=== PATIENT | female | born 1930 | race Caucasian/White ===

== ENCOUNTER 2017-11-12 19:31 | Inpatient (IN) | payer MEDICARE, BC ==
[~2017-11-12] VITALS: Ht 160 cm; Wt 57.2 kg
[~2017-11-12 19:31] MED LIST: IRON325 M1 PO; LEVAQUIN500 MG PO; LEVOTHYROXINE50 MCG PO; METOPROLOL TART50 MG PO; PANTOPRAZOLE SO40 MG PO; SENSIPAR30 MG PO; Z.0.FUROSEMIDE40 MG PO; Z.0.LEVOTHYROXINE88 PO; Z.0.METOPROLOL TART5 PO; Z.0.NIFEDICAL XL60 M PO; Z.0.SIMVASTATIN20 MG PO; ZEMPLAR PO; ZYRTEC10 MG PO; [UNRECOGNIZED DRUG - CODE] SQ; [UNRECOGNIZED DRUG - OTHER]; [UNRECOGNIZED DRUG - OTHER] IV; [UNRECOGNIZED DRUG - OTHER] PO; vitamin d PO
--- OUTSIDE RECORDS SUMMARY | 2017-11-12 19:34 | XMS REPORT ---
Author Author [facility] Address Unknown Phone Unavailable Care Team Providers Care Insurance Professional Name Role Phone EDOUARD GALLEGOS Unavailable Unavailable Problems This patient has no known problems. Allergies, Adverse Reactions, Alerts This patient has no known allergies or adverse reactions. Medications This patient has no known medications. Results Test Description Test Time Test Comments Text Results Atomic Results Result Comments CT BRAIN WO [place] [address] Patient Name: SHANTANU NAVARRO MR #: [id number] : 1930 Age/Sex: 86/F Req #: [id number] Adm Physician: Ordered by: QUINN LAURA CATERING SERVER Report #: [id number] Location: ER Room/Bed: Procedure: [id number] CT/CT BRAIN WO Exam Date: 04/27/17 Exam Time: 1899 REPORT STATUS: Signed History:Fall Comparison studies:None Technique: Axial images were obtained from the skull base to the vertex. Coronal and sagittal images reconstructed from the axial data. Intravenous contrast: None Findings: Scalp/skull: Left parietal scalp hematoma. No fracture. Extra-axial spaces: No masses. No fluid collections. Brain sulci: Mildly prominent. Ventricles: Mild compensatory dilatation. No hydrocephalus. Parenchyma: Few scattered hypodensities in the supratentorial white matter are small vessel ischemic changes. No masses, hemorrhage, acute or chronic cortical vascular insults. Sellar/suprasellar region: No abnormalities. Craniocervical junction: Patent foramen magnum. No Chiari one malformation. Incidental findings: Atherosclerotic calcifications in the carotid siphons . Impression: No acute intracranial abnormalities. Left parietal scalp hematoma. No fracture Chronic findings: 1. Mild generalized volume loss. 2. Mild supratentorial white matter small vessel ischemic changes. Signed by: DR Akshat Edouard M.D. on 04/27/2017 7:33 PM Dictated By: AKSHAT EDOUARD MD 32 Transcribed By: SIOMARA on 04/27/171932 COPY TO: QUINN LAURA NP CT CERVICAL SPINE WO [place] [address] Patient Name: SHANTANU NAVARRO MR #: [id number] : 1930 Age/Sex: 86/F Req # : [id number] Adm Physician: Ordered by: QUINN LAURA NP Report #: [id number] Location: ER Room/Bed: Procedure: [id number] CT/CT CERVICAL SPINE WO Exam Date: 04/27/17 Exam Time: 1899 REPORT STATUS: Signed History: Fall Comparison studies: None Technique: Axial images were obtained through the cervical region.. Coronal and sagittal images reconstructed from the axial data.. Intravenous contrast: None Findings: Fractures: None. Soft tissues: No gross abnormalities. Atlantoaxial articulation: Mild degenerative changes. No acute abnormality. Alignment: Normal lordosis. No scoliosis. Cervicomedullary junction: No abnormalities. The foramen magnum is patent. Vertebrae: No infection or neoplasm. Degenerative changes: Mild facet hypertrophy with mild foraminal narrowing of the mid cervical spine. Patent canal. Atherosclerotic changes of the carotid bulbs. Metallic device in the right lateral neck soft tissues. IMPRESSION: 1. No acute cervical spine abnormalities. Mild degenerative changes. 2. Cannot exclude ligament, spinal cord and or vascular abnormalities on the basis of this examination. Signed by: DR Akshat Edouard M.D. on 04/27/2017 7: 39 PM Dictated By: AKSHAT VIDALES MD 38 Transcribed By: SIOMARA on 04/27/171938 COPY TO: QUINN LAURA NP
[2017-11-12 19:54] LABS: BASOPHILS % 0.3 % (0.0-1.0); EOSINOPHILS % 0.3 % (0.0-6.0); HEMOGLOBIN 11.4 g/dL (12.0-16.0); LYMPHOCYTES # (AUTO) 0.3 (1.0-3.2); LYMPHOCYTES % 3.2 % (18.0-39.1); MEAN CORPUSCULAR HGB CONC 32.6 g/dL (31-35); MEAN CORPUSCULAR VOLUME 98.3 fL (81-99); MONOCYTES # (AUTO) 0.7 (0.2-0.8); MONOCYTES % 7.6 % (4.4-11.3); NEUTROPHILS # (AUTO) 8.4 (2.1-6.9); NEUTROPHILS % 88.3 % (38.7-80.0); PLATELET COUNT 142 x10e3/uL (140-360); RED BLOOD COUNT 3.56 x10e6/uL (3.6-5.1); RED CELL DISTRIBUTION WIDTH 13.2 % (11.7-14.4)
[2017-11-12] MEDS ORDERED: VANCOMYCIN 1GM/NS 250 ML 250 ML IV STA (19:56)
[2017-11-12 19:59] LABS: BILIRUBIN,URINE NEGATIVE (NEGATIVE); CLARITY,URINE HAZY (CLEAR); COLOR,URINE YELLOW (YELLOW); KETONES,URINE NEGATIVE (NEGATIVE); LEUKOCYTE ESTERASE ,URINE NEGATIVE (NEGATIVE); NITRITE,URINE NEGATIVE (NEGATIVE); URINE UROBILINOGEN 0.2 mg/dL (0.2 - 1)
[2017-11-12] MEDS ORDERED: CEFEPIME HCL 2 GM VIAL IV SCH (20:00)
[2017-11-12 20:10] LABS: PROTEIN,URINE DIPSTICK 2+ (NEGATIVE)
[2017-11-12 20:13] LABS: ALBUMIN 3.3 g/dL (3.5-5.0); ALBUMIN/GLOBULIN RATIO 1.1 (0.8-2.0); ANION GAP 17.2 mmol/L (8-16); CALCIUM 9.2 mg/dL (8.4-10.2); CREATININE, SERUM 3.79 mg/dL (0.57-1.11); POTASSIUM 4.2 mmol/L (3.5-5.1)
[2017-11-12 20:17] LABS: BACTERIA,URINE FEW /HPF; EPITHELIAL CELLS,URINE FEW /LPF; RBC,URINE 0-5 /HPF (0-5); WBC,URINE (MAN) 0-5 /HPF (0-5)
[2017-11-12 20:19] LABS: CREATINE KINASE MB 1.7 ng/mL (0-5.0)
--- NOTE | 2017-11-12 20:29 | Diagnostic Imaging Report ---
EXAM: CHEST 2 VIEWS, PA and lateral INDICATION: Fever, generalized weakness COMPARISON: AP view the chest September 19, 2015 FINDINGS: LINES/TUBES: None LUNGS: Bibasilar scarring. PLEURA: No effusions or pneumothorax. HEART AND MEDIASTINUM: Stable appearance. BONES AND SOFT TISSUES: No acute findings. IMPRESSION: No acute thoracic abnormality. Signed by: Dr. Sandy Ramsey M.D. on 11/12/2017 8:25 PM
[2017-11-12 20:32] LABS: INR 1.03; PARTIAL THROMBOPLASTIN TIME 26.9 seconds (23.8-35.5); PROTHROMBIN TIME 12.7 seconds (11.9-14.5)
[2017-11-12] MEDS ORDERED: ONDANSETRON HCL INJ 2 MG/ML VIAL IV PRN (21:00)
[2017-11-12] MEDS ORDERED: ACETAMINOPHEN 325 MG TAB PO PRN (21:00)
[2017-11-12] MEDS ORDERED: FAMOTIDINE 20 MG/2 ML VIAL IV SCH (21:00)
[2017-11-13] VITALS (8 sets, daily range): BP systolic 88–193; BP diastolic 47–57
[2017-11-13 07:10] LABS: BASOPHILS % 0.4 % (0.0-1.0); HEMATOCRIT 33.7 % (34.2-44.1); HEMOGLOBIN 10.8 g/dL (12.0-16.0); LYMPHOCYTES # (AUTO) 0.5 (1.0-3.2); LYMPHOCYTES % 4.5 % (18.0-39.1); MEAN CORPUSCULAR HEMOGLOBIN 31.9 pg (28-32); MEAN CORPUSCULAR VOLUME 99.4 fL (81-99); MONOCYTES # (AUTO) 0.8 (0.2-0.8); MONOCYTES % 7.4 % (4.4-11.3); NEUTROPHILS # (AUTO) 9.7 (2.1-6.9); NEUTROPHILS % 86.5 % (38.7-80.0); PLATELET COUNT 135 x10e3/uL (140-360); RED BLOOD COUNT 3.39 x10e6/uL (3.6-5.1); RED CELL DISTRIBUTION WIDTH 13.4 % (11.7-14.4)
[2017-11-13 07:35] LABS: CREATINE KINASE MB 1.3 ng/mL (0-5.0)
[2017-11-13 08:05] LABS: ALBUMIN 2.8 g/dL (3.5-5.0); ANION GAP 17.7 mmol/L (8-16); CALCIUM 9.1 mg/dL (8.4-10.2); CHOL/HDL RATIO 3.2 (3.0-3.6); CREATININE, SERUM 4.32 mg/dL (0.57-1.11); POTASSIUM 4.7 mmol/L (3.5-5.1)
[2017-11-13] MEDS ORDERED: SODIUM CHLORIDE 0.9% 1000ML 1,000 ML IV STA (08:48)
[2017-11-13] MEDS: CEFEPIME HCL 2 GM VIAL IV SCH (09:26)
[2017-11-13] MEDS: PANTOPRAZOLE SOD 40 MG TABEC PO SCH (09:26)
[2017-11-13] MEDS: FERROUS SULFATE 325 MG TAB PO SCH (09:26)
[2017-11-13] MEDS: CINACALCET 30 MG TAB PO SCH (09:26)
--- NOTE | 2017-11-13 09:32 | Consultation ---
DATE OF CONSULTATION: November 13, 2017 An 87-year-old female well known to our nephrology service. Dialyzes at [facility] on Monday, and Monday with Dr. Stanford, my associate. She has been admitted with fever. Denies any nausea, vomiting or shortness of breath at this point in time. 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 Currently awake, alert and laying supine. No apparent distress. Denies any fever this morning. Denies any shortness of breath. Labs show a white count 11.2, hemoglobin is 10.8. Chemistry shows potassium 4.7, creatinine 4.32. Calcium level 9.1. So far, her urine and blood cultures are negative. CURRENT MEDICATIONS 1. Vancomycin 1 g dose. 2. Cefepime 2 g q.12 h. which I am going to change to q.24 h. 3. She is on antiemetics. For dose schedule, please see MAR. ALLERGIES: PENICILLIN. SOCIAL HISTORY: Does not smoke or drink. Has a very supportive daughter. PHYSICAL EXAMINATION: GENERAL: She is currently awake, alert and sitting up in no apparent distress. Frail old lady with evidence of kyphosis, possibly has osteoporosis as well just by looking at her. VITALS: Blood pressure is 88/50, pulse rate 86, afebrile, oxygen saturation 94%. HEAD AND NECK: Corneae clear. Oral mucosa dry. LUNGS: Occasional rales, right base. Left relatively clear. HEART: S1 and S2 audible. Soft 2-3/6 ejection systolic murmur heard over the left sternal border. ABDOMEN: Otherwise soft and nontender. LOWER EXTREMITY EXAMINATION: No edema. IMPRESSION AND PLAN 1. Fever. 2. Elevated white count: Cultures pending. On empiric antibiotics. Cefepime dose adjusted. I will schedule dialysis. 3. Hypotensive: Will give her a liter of saline bolus. Please see orders. Job#: [id number]
--- NOTE | 2017-11-13 13:36 | History and Physical ---
HISTORY OF PRESENT ILLNESS: Ms. Cortez is an 87-year-old female that states she started having general malaise and fever the day before yesterday on November 11. She took her temperature, and it was 103 degrees Fahrenheit. She felt fatigued. She was brought to the emergency department where she was given Tylenol. Denies any further complaints on review of systems. PAST MEDICAL HISTORY 1. End-stage renal disease since 2012. 2. Hypertensive heart disease. 3. Gastroesophageal reflux disease. 4. Gastritis. 5. Esophageal stricture. 6. Anemia of chronic disease. 7. Secondary hyperparathyroidism. 8. Zenker's diverticulum with prior EGD and dilation. PAST SURGICAL HISTORY 1. Left forearm AV fistula. 2. Right coronary aneurysm repair in 1967. 3. The patient's daughter at the bedside states she had some sort of pouch in her esophagus and had surgery to repair that last year. SOCIAL HISTORY: She is a . She lives alone. She denies any history of smoking, any tobacco use, alcohol use or illicit drug use. FAMILY HISTORY: The patient states her mother and 3 siblings had Alzheimer's dementia. She is one of 10 children. She had 2 to 3 siblings with asthma. Primary care physician is Dr. Palma, and her server manager is Dr. Stanford. ALLERGIES: SHE IS ALLERGIC TO PENICILLIN. HOME MEDICATIONS: Include Protonix. REVIEW OF SYSTEMS GENERAL: She complains of fatigue and mild malaise. Denies any fever or chills currently. vertigo or loss of consciousness. She denies rash or pruritus. She denies any fever or chills currently. HEENT: Denies any visual complaints. No complaints of sore throat or trouble swallowing currently. CARDIOVASCULAR: Denies any chest pain or palpitations. PULMONARY: Denies shortness of breath, cough or phlegm. GASTROINTESTINAL: Denies nausea, vomiting, diarrhea or constipation. She states her last bowel movement was yesterday. GENITOURINARY: No complaints of dysuria or pyuria. No nocturia or urinary frequency. MUSCULOSKELETAL: She denies back pain or joint pains. ENDOCRINE: Negative for diabetes. HEMATOLOGY: Denies any bleeding or bruising. INFECTIOUS DISEASE: No known history of HIV or immunodeficiency. NEUROLOGIC: Denies any focal weakness, numbness, tingling or seizures. PHYSICAL EXAMINATION VITALS: Temperature 96.8. T-max 100.7. Heart rate 80. Blood pressure 88/50 with a MAP of 63. Respiratory rate 17. Oxygen saturation 96%. She weighs 139 pounds. BMI is 24.62. GENERAL: The patient is a well-nourished, well-developed female in no apparent distress. Lying supine in bed. Her daughter is at the bedside. HEENT: Pupils are equal, round and reactive to light. The extraocular movements are intact. Oropharynx is clear. NECK: Supple. No lymphadenopathy, thyromegaly or JVD noted. CARDIOVASCULAR: Regular rate and rhythm. No murmur appreciated. RESPIRATORY: Air entry bilaterally. She has fine expiratory crackles on the posterior left lower lobe, otherwise clear. ABDOMEN: Bowel sounds positive. Soft, nontender. BACK: No costovertebral angle tenderness. EXTREMITIES: No pitting edema. No signs or symptoms of DVT. Her left ankle and left foot are slightly larger than her right. The patient states her left foot tends to swell, which is normal for her. NEUROLOGIC: GCS is 15. Cranial nerves II through XII are intact. Alert and oriented x4. Nonfocal. LABORATORY DATA: On admission, WBC 9.57, hemoglobin 11.4, hematocrit 35.0, platelets 142. Neutrophils 88.3%. PT 12.7, INR 1.03, PTT 26.9. Sodium 141, potassium 4.2, chloride 100, CO2 28, anion gap 17.2. BUN 41, creatinine 3.79, GFR 11. Glucose 125. Calcium 9.2. Magnesium 1.8. Total bilirubin 0.5, AST 15, ALT 10, alkaline phosphatase 95. Creatine kinase 39, CK-MB 1.7, troponin I 0.042, total protein 6.3, albumin 3.3, and lactic acid 20.9. Urinalysis showed a pH of 8, specific gravity 1.015, protein 2+, negative nitrites, negative for leukocyte esterase. Influenza types A and B were negative. Group A strep screen was negative. Today, WBC is 11.25, hemoglobin 10.8, hematocrit 33.7, platelets 135. Sodium 140, potassium 4.7, chloride 99, CO2 28, BUN 48, creatinine 4.32. GFR 10. Anion gap 17.7. Glucose 92. Calcium 9.1. Total bilirubin 0.5, AST 15, ALT 10, alkaline phosphatase 76, total protein 5.5, albumin 2.8. Triglycerides 96, cholesterol 188, LDL 111, HDL 58. Upon admission, throat culture and 2 blood cultures were collected. Preliminary urine culture and sensitivity show no growth. Other culture results are pending. Chest x-ray was negative yesterday. No acute thoracic abnormality. Some bibasilar scarring. EKG completed yesterday showed sinus tachycardia with heart rate of 106. ASSESSMENT AND PLAN 1. Fever with leukocytosis. The patient has been placed on cefepime and vancomycin. One dose of vancomycin has been given, and cefepime dosage has been adjusted by nephrology to 2 g every morning. She is also on Tylenol. We will monitor the culture and sensitivity results and change antibiotics as needed. 2. End-stage renal disease on hemodialysis Monday, , Monday. Dr. Rene with nephrology has been consulted. Continue hemodialysis per nephrology recommendations. 3. Hypotension with an underlying history of hypertension. Patient has received 1 liter of normal saline IV as a bolus. Continue to monitor blood pressure. 4. Anemia secondary to chronic kidney disease. She is on ferrous sulfate. Continue this and monitor hemoglobin and hematocrit. 5. Secondary hyperparathyroidism. Continue cinacalcet. 6. Prophylaxis: Continue the patient's home medication Protonix. Total time 1 hour. Dictated by: Mars Waggoner NP Job#: [id number]
[2017-11-13 15:37] LABS: CREATINE KINASE MB 1.9 ng/mL (0-5.0)
[2017-11-13] MEDS ORDERED: VANCOMYCIN 1GM/NS 250 ML 250 ML IV ONE (19:00)
[2017-11-13] MEDS ORDERED: SODIUM CHLORIDE 0.9% 250ML 250 ML ONE (21:53)
[2017-11-14] VITALS (9 sets, daily range): BP systolic 104–141; BP diastolic 51–77
[2017-11-14 06:53] LABS: BASOPHILS % 0.5 % (0.0-1.0); EOSINOPHILS # (AUTO) 0.1 (0.0-0.4); EOSINOPHILS % 1.8 % (0.0-6.0); HEMATOCRIT 32.2 % (34.2-44.1); HEMOGLOBIN 10.2 g/dL (12.0-16.0); LYMPHOCYTES # (AUTO) 0.8 (1.0-3.2); MEAN CORPUSCULAR HEMOGLOBIN 32.1 pg (28-32); MEAN CORPUSCULAR HGB CONC 31.7 g/dL (31-35); MEAN CORPUSCULAR VOLUME 101.3 fL (81-99); MONOCYTES # (AUTO) 0.5 (0.2-0.8); MONOCYTES % 9.7 % (4.4-11.3); NEUTROPHILS % 72.6 % (38.7-80.0); PLATELET COUNT 115 x10e3/uL (140-360); RED BLOOD COUNT 3.18 x10e6/uL (3.6-5.1); RED CELL DISTRIBUTION WIDTH 13.5 % (11.7-14.4)
[2017-11-14 07:17] LABS: ALBUMIN 2.5 g/dL (3.5-5.0); ALBUMIN/GLOBULIN RATIO 0.9 (0.8-2.0); ANION GAP 18.1 mmol/L (8-16); CREATININE, SERUM 5.07 mg/dL (0.57-1.11); POTASSIUM 5.1 mmol/L (3.5-5.1)
[2017-11-14] MEDS ORDERED: PANTOPRAZOLE SOD 40 MG TABEC PO SCH (09:00)
[2017-11-14] MEDS: PANTOPRAZOLE SOD 40 MG TABEC PO SCH (09:30)
[2017-11-14] MEDS: FERROUS SULFATE 325 MG TAB PO SCH (10:13)
[2017-11-14] MEDS: CINACALCET 30 MG TAB PO SCH (10:13)
[2017-11-14] MEDS: CEFEPIME HCL 2 GM VIAL IV SCH (10:13)
[2017-11-14] MEDS: CHOLECALCIFEROL 1,000 UNIT TAB PO SCH (10:13)
[2017-11-14] MEDS ORDERED: SODIUM CHLORIDE 0.9% 1000ML 1,000 ML IV PRN (16:15)
[2017-11-14] MEDS: VANCOMYCIN 1GM/NS 250 ML 250 ML IV SCH (22:18)
[2017-11-15] VITALS (7 sets, daily range): BP systolic 116–160; BP diastolic 59–74
[2017-11-15 06:43] LABS: BASOPHILS % 0.5 % (0.0-1.0); EOSINOPHILS # (AUTO) 0.2 (0.0-0.4); EOSINOPHILS % 3.8 % (0.0-6.0); HEMATOCRIT 33.5 % (34.2-44.1); HEMOGLOBIN 10.7 g/dL (12.0-16.0); LYMPHOCYTES # (AUTO) 0.7 (1.0-3.2); LYMPHOCYTES % 15.7 % (18.0-39.1); MEAN CORPUSCULAR HEMOGLOBIN 31.8 pg (28-32); MEAN CORPUSCULAR HGB CONC 31.9 g/dL (31-35); MEAN CORPUSCULAR VOLUME 99.4 fL (81-99); MONOCYTES # (AUTO) 0.5 (0.2-0.8); MONOCYTES % 10.7 % (4.4-11.3); NEUTROPHILS # (AUTO) 2.9 (2.1-6.9); NEUTROPHILS % 69.1 % (38.7-80.0); PLATELET COUNT 109 x10e3/uL (140-360); RED BLOOD COUNT 3.37 x10e6/uL (3.6-5.1); RED CELL DISTRIBUTION WIDTH 13.4 % (11.7-14.4)
[2017-11-15 07:33] LABS: CREATININE, SERUM 2.68 mg/dL (0.57-1.11); MAGNESIUM 1.7 MG/DL (1.3-2.1); PHOSPHORUS 3.5 MG/DL (2.3-4.7)
[2017-11-15] MEDS: PANTOPRAZOLE SOD 40 MG TABEC PO SCH ×2 (09:29→09:43)
[2017-11-15] MEDS: FERROUS SULFATE 325 MG TAB PO SCH ×2 (09:29→09:43)
[2017-11-15] MEDS: CINACALCET 30 MG TAB PO SCH ×2 (09:30→09:43)
[2017-11-15] MEDS: CHOLECALCIFEROL 1,000 UNIT TAB PO SCH ×2 (09:30→09:43)
[2017-11-15] MEDS ORDERED: POLYETHYLENE GLYCOL 3350 17 GM PACK PO PRN (22:15)
[2017-11-16] VITALS (8 sets, daily range): BP systolic 119–153; BP diastolic 59–72
[2017-11-16] MEDS: FERROUS SULFATE 325 MG TAB PO SCH (08:12)
[2017-11-16] MEDS: PANTOPRAZOLE SOD 40 MG TABEC PO SCH (08:12)
[2017-11-16] MEDS: DOCUSATE SODIUM 100 MG CAP PO SCH ×2 (08:12→17:28)
[2017-11-16] MEDS: CHOLECALCIFEROL 1,000 UNIT TAB PO SCH (08:12)
[2017-11-16] MEDS: CINACALCET 30 MG TAB PO SCH (08:12)
[2017-11-16 09:00] LABS: BASOPHILS % 0.6 % (0.0-1.0); EOSINOPHILS # (AUTO) 0.2 (0.0-0.4); EOSINOPHILS % 4.7 % (0.0-6.0); HEMATOCRIT 34.9 % (34.2-44.1); HEMOGLOBIN 11.2 g/dL (12.0-16.0); LYMPHOCYTES # (AUTO) 0.8 (1.0-3.2); LYMPHOCYTES % 17.3 % (18.0-39.1); MEAN CORPUSCULAR HEMOGLOBIN 31.9 pg (28-32); MEAN CORPUSCULAR HGB CONC 32.1 g/dL (31-35); MEAN CORPUSCULAR VOLUME 99.4 fL (81-99); MONOCYTES # (AUTO) 0.5 (0.2-0.8); MONOCYTES % 10.9 % (4.4-11.3); NEUTROPHILS # (AUTO) 3.2 (2.1-6.9); NEUTROPHILS % 66.1 % (38.7-80.0); PLATELET COUNT 128 x10e3/uL (140-360); RED BLOOD COUNT 3.51 x10e6/uL (3.6-5.1); RED CELL DISTRIBUTION WIDTH 13.2 % (11.7-14.4)
[2017-11-16 09:20] LABS: ANION GAP 15.2 mmol/L (8-16); CALCIUM 9.3 mg/dL (8.4-10.2); CREATININE, SERUM 3.84 mg/dL (0.57-1.11); POTASSIUM 4.2 mmol/L (3.5-5.1)
[2017-11-16] MEDS ORDERED: HYDRALAZINE HCL 20 MG/ML VIAL IV PRN (09:30)
[2017-11-16] MEDS: VANCOMYCIN 1GM/NS 250 ML 250 ML IV SCH (17:28)
[2017-11-17] VITALS: BP 123/60
[2017-11-17 04:00] VITALS: BP 163/71
[2017-11-17 06:41] VITALS: BP 142/80
[2017-11-17 08:26] VITALS: BP 177/71
[2017-11-17] MEDS: FERROUS SULFATE 325 MG TAB PO SCH (09:30)
[2017-11-17] MEDS: CHOLECALCIFEROL 1,000 UNIT TAB PO SCH (09:30)
[2017-11-17] MEDS: DOCUSATE SODIUM 100 MG CAP PO SCH ×2 (09:30→17:22)
[2017-11-17] MEDS: CINACALCET 30 MG TAB PO SCH (09:30)
[2017-11-17 12:24] VITALS: BP 167/73
[2017-11-17] MEDS ORDERED: BISACODYL 10 MG SUPP PR PRN (14:45)
[2017-11-17] MEDS ORDERED: LACTULOSE SYRUP 20 GM/30 ML UDC PO PRN ×2 (14:45)
[2017-11-17] MEDS ORDERED: COLACE100 M1 PO (15:58)
[2017-11-17] MEDS ORDERED: ACETAMINOPHEN325 M1 PO (15:58)
[2017-11-17] MEDS ORDERED: VITAMIN D1000 UNI1 PO (15:58)
[2017-11-17] MEDS ORDERED: MIRALAX17 GM PO (15:58)
[2017-11-17] MEDS ORDERED: VITAMIN C500 M2 PO (15:59)
[2017-11-17 16:00] VITALS: BP 149/63
--- NOTE | 2017-11-17 17:36 | Discharge Summary ---
PERTINENT HISTORY AND PHYSICAL FINDINGS: The patient is an 87-year-old female who was admitted on 11/12/2017 stating that she had generalized malaise and fever 2 days prior to admission on November 11. She took her temperature and it was 103 degrees Fahrenheit. She felt fatigued. She was given Tylenol in the emergency room and started on cefepime and vancomycin. PAST MEDICAL HISTORY: End-stage renal disease since 2012, hypertensive heart disease, gastroesophageal reflux disease, gastritis, esophageal stricture, anemia of chronic disease secondary to hyperparathyroidism, Zenker's diverticulum with prior EGD and dilation. PAST SURGICAL HISTORY: Left forearm AV fistula, right coronary aneurysm repair in 1967. She had some sort of patch in her esophagus and had surgical repair to that last year. ADMITTING DIAGNOSES 1. Fever with leukocytosis. 2. End-stage renal disease on hemodialysis Monday, , Monday. 3. Hypotension with an underlying history of hypertension. 4. Anemia secondary to chronic kidney disease. 5. Secondary hyperparathyroidism. DISCHARGE DIAGNOSES 1. Fever with leukocytosis. 2. Gram-positive cocci bacteremia. 3. Systolic hypertension complicated by end-stage renal disease and on hemodialysis Monday, , Monday. 4. Hypomagnesemia. 5. Thrombocytopenia. 6. End-stage renal disease and on hemodialysis Monday, , Monday. 7. Anemia secondary to chronic kidney disease. 8. Secondary hyperparathyroidism. 9. Debility. 10. Constipation. On admission, her white blood cell count was 9.57, hemoglobin 11.4, hematocrit 35, platelets 142,000, 98.3% neutrophils. Overall electrolytes were within normal limits. Her creatinine was 3.79 and BUN 41 for a GFR of 11. Influenza types A and B were negative. Urinalysis showed negative nitrites, negative for leukocyte esterase. Group A Strept screen was negative. White blood cell count did increase to 11.25. Blood culture and sensitivity collected on November 12 x2 bottles positive for Staphylococcus aureus, and, therefore, further blood cultures were collected. Blood cultures sensitivity x2 on the , and , thus far have been negative for any growth. The case was discussed with Dr. Polanco. There are plans for a transesophageal echocardiogram if any of the additional culture and sensitivities had growth in order to rule out bacterial endocarditis. However, all of the cultures have come back negative. Thus, the patient can be discharged today with orders to case management to set up IV antibiotic administration of vancomycin 1 gram IV, plus dialysis thrice weekly on her dialysis days. I have put in an order for case management to set up home health for physical therapy and a home safety evaluation. The patient is to continue on her renal diet. Activity level as tolerated. Follow up with primary care physician in one to two weeks. Follow up with nephrology as directed. Continued to go to her dialysis center and receive dialysis. Consulting physician on the case include Dr. Bart Rene of nephrology. Dictated by: Mars Waggoner, Acute Care Nurse Practitioner VENU POLANCO MD Job#: [id number] GH
== END 2017-11-17 18:40 | disposition home or self-care (01) | DRG 871 ==
LOC: ER 19:31 → ERHOLD 21:01 → IMCU 21:02 → OBSVTOIN 11-14 11:57 → MED/SURG3 11-15 16:58
PROVIDERS: ADMIT Internal Medicine; ATTEND Internal Medicine
PROC: 5A1D70Z Performance of Urinary Filtration, Intermittent, Less than 6 Hours Per Day (ICD-10-PCS; principal; 2017-11-14)
PROC: 5A1D70Z Performance of Urinary Filtration, Intermittent, Less than 6 Hours Per Day (ICD-10-PCS; 2017-11-16)
DX: R78.81 Bacteremia (principal); N18.6 End stage renal disease; I13.2 Hypertensive heart and chronic kidney disease with heart failure and with stage 5 chronic kidney disease, or end stage renal disease; I50.22 Chronic systolic (congestive) heart failure; D69.6 Thrombocytopenia, unspecified; B95.61 Methicillin susceptible Staphylococcus aureus infection as the cause of diseases classified elsewhere; D63.1 Anemia in chronic kidney disease; E83.42 Hypomagnesemia; Z99.2 Dependence on renal dialysis; E21.3 Hyperparathyroidism, unspecified; K21.9 Gastro-esophageal reflux disease without esophagitis; Z88.0 Allergy status to penicillin; K59.00 Constipation, unspecified; R53.81 Other malaise
CPT/HCPCS: 36415; 71046; 80048; 80053; 80061; 81001; 82550; 82553; 83518; 83605; 83735; 84100; 84484; 85025; 85610; 85730; 86704; 86706; 87040; 87070; 87071; 87086; 87186; 87205; 87340; 87400; 90962; 93005; 99284; G0378; J0360; J0692; J3370; J7030; J7050

== ENCOUNTER 2018-02-27 15:51 | Inpatient (IN) | payer MEDICARE, BC ==
[~2018-02-27] VITALS: Ht 165.1 cm; Wt 46.7 kg
[~2018-02-27 15:51] MED LIST changes: +ACETAMINOPHEN325 M1 PO; +COLACE100 M1 PO; +MIRALAX17 GM PO; +VITAMIN C500 M2 PO; +VITAMIN D1000 UNI1 PO
[2018-02-27] MEDS ORDERED: CEFTRIAXONE SOD 1 GM VIAL IM ONE (17:00)
[2018-02-27 17:01] LABS: BASOPHILS % 0.1 % (0.0-1.0); HEMATOCRIT 34.5 % (34.2-44.1); HEMOGLOBIN 11.4 g/dL (12.0-16.0); LYMPHOCYTES # (AUTO) 0.3 (1.0-3.2); LYMPHOCYTES % 4.1 % (18.0-39.1); MEAN CORPUSCULAR HEMOGLOBIN 32.2 pg (28-32); MEAN CORPUSCULAR VOLUME 97.5 fL (81-99); MONOCYTES # (AUTO) 0.3 (0.2-0.8); MONOCYTES % 4.3 % (4.4-11.3); NEUTROPHILS # (AUTO) 7.2 (2.1-6.9); NEUTROPHILS % 90.6 % (38.7-80.0); PLATELET COUNT 139 x10e3/uL (140-360); RED BLOOD COUNT 3.54 x10e6/uL (3.6-5.1); RED CELL DISTRIBUTION WIDTH 13.6 % (11.7-14.4)
[2018-02-27 17:05] LABS: INR 1.1; PROTHROMBIN TIME 13.4 seconds (11.9-14.5)
[2018-02-27 17:06] LABS: PARTIAL THROMBOPLASTIN TIME 34.5 seconds (23.8-35.5)
[2018-02-27] MEDS ORDERED: IBUPROFEN 400 MG TAB PO ONE (17:15)
[2018-02-27 17:17] LABS: ALBUMIN 3.2 g/dL (3.5-5.0); ANION GAP 12.6 mmol/L (8-16); CALCIUM 10.2 mg/dL (8.4-10.2); CREATININE, SERUM 2.27 mg/dL (0.57-1.11); MAGNESIUM 2.3 MG/DL (1.3-2.1); POTASSIUM 3.6 mmol/L (3.5-5.1)
[2018-02-27 17:23] LABS: B-TYPE NATRIURETIC PEPTIDE2 1705.5 pg/mL (0-100)
[2018-02-27 17:36] LABS: CREATINE KINASE MB 1.5 ng/mL (0-5.0)
--- NOTE | 2018-02-27 18:02 | Diagnostic Imaging Report ---
PROCEDURE: A single AP view of the chest. COMPARISON: Patients [facility], DX, CHEST SINGLE (PORTABLE), 03/01/2016, 1:40. Patients [facility], DX, CHEST 2 VIEWS, 11/12/2017, 20:01. INDICATIONS: SHORTNESS OF BREATH FINDINGS: Exam limited by patient rotation. Lines/tubes: None. Lungs: The lungs are well inflated. Mild prominence of the interstitial markings, which is greater than prior chest films. No definite consolidation. Stable 4 mm calcified granuloma in the right upper lobe Pleura: Blunting of the left lateral costophrenic sulcus. Heart and mediastinum: Stable mild prominence of the cardiac silhouette. Mild central pulmonary venous prominence. Bones: No acute bony abnormality. Generalized osteopenia. Degenerative changes in the thoracic spine. IMPRESSION: 1. mild prominence of the interstitial markings, which is greater than on prior chest films. This may represent mild interstitial edema superimposed on a background of chronic interstitial changes. 2. Stable mild prominence of the cardiac silhouette with mild central pulmonary venous congestion. 3. Blunting of the left lateral costophrenic sulcus, which may be due to prominent epicardial fat-pad or soft tissue attenuation rather than effusion. Fermin Jackson M.D. Dictated by: Fermin Jackson M.D. on 02/27/2018 at 18:06 Electronically approved by: Fermin Jackson M.D. on 02/27/2018 at 18:06
[2018-02-27] MEDS ORDERED: LIDOCAINE HCL 1% LOCAL INJ 20 ML VIAL ONE (19:31)
[2018-02-27 19:34] LABS: BILIRUBIN,URINE NEGATIVE (NEGATIVE); CLARITY,URINE CLEAR (CLEAR); COLOR,URINE YELLOW (YELLOW); KETONES,URINE NEGATIVE (NEGATIVE); LEUKOCYTE ESTERASE ,URINE NEGATIVE (NEGATIVE); NITRITE,URINE NEGATIVE (NEGATIVE); PROTEIN,URINE DIPSTICK 2+ (NEGATIVE); URINE UROBILINOGEN 0.2 mg/dL (0.2 - 1)
[2018-02-27 19:45] LABS: EPITHELIAL CELLS,URINE FEW /LPF; MUCUS,URINE FEW (RARE); RBC,URINE 0-5 /HPF (0-5)
[2018-02-27] MEDS ORDERED: AZITHROMYCIN 500MG/SOD CHL 0.9% 250ML BAG IV SCH (20:45)
[2018-02-27] MEDS ORDERED: ACETAMINOPHEN 325 MG TAB PO PRN (20:45)
[2018-02-28] VITALS (9 sets, daily range): BP systolic 106–133; BP diastolic 48–61
[2018-02-28] MEDS: AZITHROMYCIN 500MG/NS 250 ML 250 ML IV SCH ×2 (00:09→21:45)
[2018-02-28 02:43] LABS: CREATINE KINASE MB 1.8 ng/mL (0-5.0)
[2018-02-28] MEDS: CEFTRIAXONE SOD 1 GM VIAL IV SCH ×2 (06:30→17:58)
[2018-02-28 09:57] LABS: CREATINE KINASE MB 2.1 ng/mL (0-5.0)
--- NOTE | 2018-02-28 17:13 | Consultation ---
DATE OF CONSULTATION: February 28, 2018 HISTORY OF PRESENT ILLNESS: Ms. Jessie Cortez is an 87-year-old female who is well known to me. Apparently came in with fever and chills. She has underlying history of end-stage renal disease, prior history of AV fistula placement, underlying esophageal surgery. Multiple comorbidities include hypertension and secondary hypothyroidism. She was given empiric antibiotics. Currently awake, alert, lying supine, in no apparent distress. She is suspected to have possible right lower lobe pneumonia. She is scheduled for dialysis tomorrow. She is a Monday, , Monday dialysis patient. Chest x-ray, please see official report, shows mild prominence of interstitial markings, stable blunting of bilateral costophrenic angles. Her laboratory tests show a white count 7.9 with a hemoglobin 11.4. Potassium 3.6. BNP 1705. Urine and blood cultures are pending. CURRENT MEDICATIONS: Include azithromycin, ceftriaxone, ibuprofen p.r.n. For dose schedule, please see MAR. SOCIAL HISTORY: Does not smoke or drink. FAMILY HISTORY: Significant for hypertension. CURRENT REVIEW OF SYSTEMS: Denies any fever, chills, cough, shortness of breath, or nausea. PHYSICAL EXAMINATION GENERAL: Awake, alert, lying supine. Thin-built female, cachectic, poor muscle mass. VITALS: Blood pressure 108/56. Pulse rate 76. Afebrile. Respiratory rate 17. HEAD AND NECK: Corneas clear. Arcus senilis noted. Oral mucosa moist. Neck veins flat. LUNGS: Rales noted at right base more than left. HEART: S1, S2 audible. ABDOMEN: Soft and nontender. LOWER EXTREMITIES: No edema. IMPRESSION AND PLAN 1. Fever of unknown origin. Suspected pneumonia. On antibiotics, cultures pending. 2. End-stage renal disease. Volume status stable. Schedule for dialysis tomorrow. 3. Underlying anemia. 4. Hypertension. 5. Multiple comorbids. Will obtain phosphorus levels. Start phosphorus binders. Appropriate diet. Protein supplementation. Further recommendations to follow. Job#: [id number]
[2018-02-28] MEDS: SEVELAMER CARBONATE 800 MG TAB PO SCH (17:58)
[2018-02-28] MEDS ORDERED: POLYETHYLENE GLYCOL 3350 17 GM PACK PO PRN (19:45)
--- NOTE | 2018-02-28 22:17 | History and Physical ---
PRIMARY CARE PHYSICIAN: Dr. Palma CHIEF COMPLAINT: Fever and vomiting. HISTORY OF PRESENT ILLNESS: This is an 87-year-old woman with a history of end-stage renal disease, on hemodialysis, now developing nausea, vomiting, and cough. She denies any diarrhea. Denies any fever, chills, sweats. She is admitted for further evaluation and management. PAST MEDICAL HISTORY: End-stage renal disease, on hemodialysis since 2012; hypertension; GERD; gastritis; esophageal stricture; anemia of chronic disease; secondary hyperparathyroidism; Zenker diverticulum; ambulatory dysfunction needing use of walker. PAST SURGICAL HISTORY: Left AV fistula, right coronary aneurysm repair in 1967, likely esophageal dilatation. ALLERGIES: PER ELECTRONIC MEDICAL RECORD. FAMILY/SOCIAL HISTORY: Patient is . She has 4 children. No alcohol, illicits, or cigarettes. Lives alone. MEDICATIONS: Per electronic medical record. REVIEW OF SYSTEMS: Denies any dizziness, chest pain, fever, chills, sweats, leg pain, back pain, headache, blurred vision. PHYSICAL EXAMINATION: VITAL SIGNS: Have been reviewed. GENERAL APPEARANCE: Tired-appearing woman resting in bed. HEENT: Anicteric. CARDIOVASCULAR: Normal S1 and S2. LUNGS: Moderate breath sounds. ABDOMEN: Soft, nontender. It is mildly distended, but soft and compressible. EXTREMITIES: She has left arm bruit. No sign of infection. SKIN: Dry. PSYCHIATRIC: Normal affect. NEUROLOGICAL: Alert and oriented x2. She moves all extremities. LABS: Reviewed. MEDICATIONS: Reviewed. ASSESSMENT: This is an 87-year-old woman: 1. Sepsis. 2. Underweight state. 3. Chronic congestive heart failure. 4. Pulmonary edema. 5. End-stage renal disease, on hemodialysis. 6. Secondary hyperparathyroidism. 7. History of gastritis. 8. Gastroesophageal reflux disease. 9. Acute gastroenteritis. PLAN: 1. Continue antibiotics ceftriaxone and azithromycin. 2. Add Flagyl for possible acute gastroenteritis. 3. Flagyl is in shortage, we will monitor closely and may need to receive IV Flagyl. 4. Continue cinacalcet. 5. Continue ferrous sulfate. 6. Restart pantoprazole for history of GERD and gastritis. 7. Use SCD for DVT prophylaxis. 8. Follow up cultures. Monitor closely. Job#: [id number]
[2018-03-01] VITALS (7 sets, daily range): BP systolic 126–157; BP diastolic 59–72
[2018-03-01 06:13] LABS: ALBUMIN 2.6 g/dL (3.5-5.0); ALBUMIN/GLOBULIN RATIO 0.9 (0.8-2.0); ANION GAP 16.2 mmol/L (8-16); CREATININE, SERUM 4.43 mg/dL (0.57-1.11); POTASSIUM 4.2 mmol/L (3.5-5.1)
[2018-03-01] MEDS: FERROUS SULFATE 325 MG TAB PO SCH (08:16)
[2018-03-01] MEDS: SEVELAMER CARBONATE 800 MG TAB PO SCH ×3 (08:16→18:14)
[2018-03-01] MEDS: PANTOPRAZOLE SOD 40 MG TABEC PO SCH (08:16)
[2018-03-01] MEDS: DOCUSATE SODIUM 100 MG CAP PO SCH ×2 (08:16→18:14)
[2018-03-01] MEDS: CINACALCET 30 MG TAB PO SCH (08:16)
[2018-03-01] MEDS: CEFTRIAXONE SOD 1 GM VIAL IV SCH (08:35)
[2018-03-01] MEDS ORDERED: SODIUM CHLORIDE 0.9% 1000ML 1,000 ML ONE (13:48)
[2018-03-01] MEDS ORDERED: VANCOMYCIN 1GM/NS 250 ML 250 ML IV SCH ×2 (14:45→15:00)
--- NOTE | 2018-03-01 15:53 | Consultation ---
DATE OF CONSULTATION: REASON FOR CONSULTATION: Bacteremia. HISTORY OF PRESENT ILLNESS: This patient is a very pleasant, elderly lady, 87, who has history of end-stage renal disease on hemodialysis, receives hemodialysis through an AV fistula. The patient had fever and chills. Blood cultures obtained in dialysis are already growing gram-positive cocci. Patient was transferred here. The patient has no other complaints at this time. She is just generally weak. Patient is very pleasant. PAST MEDICAL HISTORY: She has history of end-stage renal disease on hemodialysis since 2012, GERD, gastritis, esophageal stricture, anemia of chronic disease, Zenker diverticular disease. PAST SURGICAL HISTORY: Left AV fistula, right coronary aneurysm repair, and esophageal dilatation. ALLERGIES: NKA. SOCIAL HISTORY: There is no smoking, drug abuse or alcohol abuse. FAMILY HISTORY: Hypertension. REVIEW OF SYSTEMS HEENT: Negative. PULMONARY: Negative. CARDIAC: Negative. : Negative. SKIN: There is no other rash. ALL OTHER SYSTEMS: Within normal limits. LABS: Her blood cultures are showing Staphylococcus aureus. Chest x-ray showed interstitial markings. PHYSICAL EXAMINATION GENERAL: She is currently alert and oriented, does not seem to be in acute distress. VITALS: Stable, currently afebrile. HEENT: She is not icteric. NECK: Supple. CHEST: Clear. HEART: S1 and S2, no murmur. ABDOMEN: Soft. Bowel sounds are present. No tenderness. EXTREMITIES: No edema. SKIN: There is no rash. There is a fistula. There is no erythema and no edema. IMPRESSION: Sepsis present on admission, bacteremia, Staphylococcus aureus. Concerned about endocarditis. Concerned about infection. I would recommend to put the patient on vancomycin to be given 1 g IV piggyback now, then after each hemodialysis. I would recommend to get an echocardiogram of good quality to rule out endocarditis. Will recheck blood cultures, recheck CBC, recheck chem panel. Will follow with you. Job#: [id number]
[2018-03-01] MEDS ORDERED: SODIUM CHLORIDE 0.9% 250ML 250 ML ONE (17:38)
[2018-03-02] VITALS (9 sets, daily range): BP systolic 124–160; BP diastolic 60–76
[2018-03-02 03:03] LABS: BASOPHILS % 0.4 % (0.0-1.0); EOSINOPHILS # (AUTO) 0.1 (0.0-0.4); EOSINOPHILS % 1.7 % (0.0-6.0); HEMATOCRIT 32.7 % (34.2-44.1); HEMOGLOBIN 10.5 g/dL (12.0-16.0); LYMPHOCYTES # (AUTO) 0.8 (1.0-3.2); LYMPHOCYTES % 15.5 % (18.0-39.1); MEAN CORPUSCULAR HEMOGLOBIN 31.8 pg (28-32); MEAN CORPUSCULAR HGB CONC 32.1 g/dL (31-35); MEAN CORPUSCULAR VOLUME 99.1 fL (81-99); MONOCYTES # (AUTO) 0.6 (0.2-0.8); MONOCYTES % 11.6 % (4.4-11.3); NEUTROPHILS # (AUTO) 3.6 (2.1-6.9); NEUTROPHILS % 70.4 % (38.7-80.0); PLATELET COUNT 125 x10e3/uL (140-360); RED CELL DISTRIBUTION WIDTH 13.5 % (11.7-14.4)
[2018-03-02 03:20] LABS: ANION GAP 14.8 mmol/L (8-16); CALCIUM 9.5 mg/dL (8.4-10.2); CREATININE, SERUM 2.64 mg/dL (0.57-1.11); MAGNESIUM 2.1 MG/DL (1.3-2.1); PHOSPHORUS 3.7 MG/DL (2.3-4.7); POTASSIUM 3.8 mmol/L (3.5-5.1)
[2018-03-02] MEDS: DOCUSATE SODIUM 100 MG CAP PO SCH ×2 (08:48→17:21)
[2018-03-02] MEDS: PANTOPRAZOLE SOD 40 MG TABEC PO SCH (08:48)
[2018-03-02] MEDS: SEVELAMER CARBONATE 800 MG TAB PO SCH ×3 (08:48→17:21)
[2018-03-02] MEDS: FERROUS SULFATE 325 MG TAB PO SCH (08:48)
[2018-03-02] MEDS: CINACALCET 30 MG TAB PO SCH (08:48)
[2018-03-02] MEDS ORDERED: CEFAZOLIN SOD IV SCH (10:30)
[2018-03-02] MEDS ORDERED: WATER STERILE IV SCH (10:30)
[2018-03-02] MEDS ORDERED: CEFAZOLIN SOD 2 GM in WATER STERILE 10ML VIAL 10 ML IV SCH (10:30)
--- NOTE | 2018-03-02 11:31 | Consultation ---
DATE OF CONSULTATION: REASON FOR CONSULTATION: Fevers, chills, concern for endocarditis. HPI: This is an 87-year-old female well known to the practice with a history of hypertension; end-stage renal disease on HD therapy on Monday, and Monday; hypothyroidism; anemia; reflux. The patient presents to [facility] ER with complaints of fevers and chills. Temperature initially was 102 Fahrenheit. She was started on antibiotic therapy. Blood cultures have been done showing Staphylococcus aureus on 2 cultures. Therefore, cardiology was consulted for possible endocarditis. The patient was seen in the room in no acute distress. She says she feels much better. No more fever or chills. White count is 5.1, on antibiotic therapy per ID recommendations. PAST MEDICAL HISTORY 1. Hypertension. 2. End-stage renal disease on HD therapy since 2014 on Monday, and Monday. 3. Hypothyroidism. 4. Anemia. 5. GERD. PAST SURGICAL HISTORY 1. 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 2. Left ureteral stent. 3. AV fistula. 4. Neck surgery. FAMILY HISTORY: Mother at age 56, apparently had a history of asthma and Alzheimer dementia. Father at age 90, apparently from old age. Had a history of emphysema. SOCIAL HISTORY: She is a . Lifelong nonsmoker. She is retired. No alcohol or tobacco use. ALLERGIES: PENICILLIN. HOME MEDICATIONS: Include: 1. Aspirin 81 mg once a day. 2. Linzess 145 mg once a day. 3. Tylenol 325 mg as needed. 4. Sensipar 30 mg once daily. 5. Protonix 40 mg once a day. 6. Vitron-C 65 per 125 mg daily. 7. Levothyroxine 100 mcg daily. 8. Renvela 800 mg 3 times a day. REVIEW OF SYSTEMS GENERAL: Patient is unable to do much activities, poor exercise tolerance, poor general state of health. Uses walker for ambulation. HEENT: No headaches, no dizziness. Positive for reading glasses. No tinnitus. No nosebleed or stuffiness. No dry mouth or sore throat. RESPIRATORY: Positive for dyspnea on exertion. No hemoptysis. No wheezing. No coughing. CARDIOVASCULAR: No chest pain. Positive for easy fatigability. Positive for dyspnea on exertion. Denies any orthopnea, PND or any palpitations. GI: Fair appetite. Positive for reflux. No constipation. No nausea or vomiting. No hematemesis or melena. HEMATOLOGY: Denies any bruising or bleeding. : Positive for frequency and incontinence. No hematuria. No burning or pain on urination. MUSCULOSKELETAL: Positive joint pains throughout. Positive for muscle weakness and stiffness. PERIPHERAL VASCULAR: Positive for lower extremity edema. Denies any claudication. SKIN: No rashes or easy bruising. NEUROLOGIC: Positive for gait abnormalities. Uses walker for assistance. Positive for generalized weakness. Denies any tingling, seizures, passing out. PHYSICAL EXAMINATION VITAL SIGNS: Currently, temperature 97.6, pulse 80, respiratory rate 18, blood pressure 143/65. Pulse ox is 100% on 2 L nasal cannula. GENERAL: Appears her stated age. Reliable informant. In no acute distress; however, she does look chronically ill. HEENT: Normocephalic. The pupils are equal and reactive. Extraocular motor intact. Trachea is midline. Oral mucosa is pink. NECK: Positive carotid bruit bilaterally. Positive JVD. LUNGS: Bilateral breath sounds clear to auscultation bilaterally. Good airway entry and exit. CARDIAC: Regular rate and rhythm. Positive systolic murmur heard, more pronounced in the right upper sternal border. PMI at about the 5th intercostal space. ABDOMEN: Soft, nontender and nondistended. No organomegaly noted. EXTREMITIES: Warm. Trace lower extremity edema. Left AV fistula with positive thrill and bruit. PERIPHERAL PULSES: There are +2 bilateral radial pulses and +1 DP and PT bilateral pulses. SKIN: No rashes or bruises noted. NEUROLOGIC: Cranial nerves II through XII seem intact. Abnormal gait. Uses walker for assistance. ASSESSMENT 1. Sepsis. 2. Bacteremia with Staphylococcus aureus times 2 cultures. 3. End-stage renal disease on hemodialysis therapy on Monday, and Monday. 4. Hypertension. 5. Anemia of chronic disease. 6. Debility. 7. Hypothyroidism. PLAN 1. The patient presents with fevers and chills with positive blood cultures on antibiotic therapy as per ID. ID concerned about possible endocarditis. Will recommend continuation of antibiotics as per ID recommendations. A surface echo has been ordered to be done. Cardiology attending will review imaging when it is available. 2. P.R.N. clonidine as needed. 3. Aspirin therapy. 4. Will treat the patient conservatively at this time, given the patient's medical history and debility. 5. Further recommendations as the clinical course progresses. Thank you very much for this consult. Dictated by: Ryne Duran NP SEEN AND EXAMINED AGREE WITH NOTE MITRAL VALVE ENDOCARDITIS DISCUSSED WITH ID SERVICE DISCUSSED WITH SON Job#: [id number]
[2018-03-02] MEDS ORDERED: CEFAZOLIN SOD 1 GM VIAL IV SCH (13:30)
--- NOTE | 2018-03-02 17:02 | Diagnostic Imaging Report ---
PROCEDURE:MODIFIED BA. SWALLOW COMPARISON:Patients [facility], [place], MODIFIED BA. SWALLOW, 07/02/2015, 11:27. INDICATIONS:Dysphasia, pneumonia, fever, UTI DISCUSSION: Fluoroscopic examination was performed in conjunction with speech pathology during swallowing of a variety of thin and thick liquid consistencies. RADIATION DOSE: Total Time: 02:44 MINUTES Cumulative area dose product: 108.20 cGym\S\2 Cumulative air kerma: 5.98 mGy FINDINGS: Right carotid clamp is stable. A Zenker's diverticulum is visualized on Cine #18, frame 16/49. This is stable. PREMATURE SPILLAGE: Over the base of the tongue: Present with all consistencies To vallecula: Present with all consistencies To pyriform sinus: Present with all consistencies LARYNGEAL PENETRATION: Present within liquids, juice portion of mixed mechanical soft, and thick pure. Penetration was silent with thin liquids and overt with the pure. Prompting of throat clearance was effective for thick pure but not thin liquid. ASPIRATION: Silent trace aspiration of thin liquids and juice portion of mixed mechanical soft, aspiration of thick pure was suspected but not visualized. Chin to maneuver not successful RESIDUE: VALLECULA: Moderate to severe. 4-5 additional swallows reduced residue to mild to moderate PYRIFORM SINUS: Moderate to severe. 4-5 additional swallows reduced residue to mild to moderate PHARYNGEAL WALL: Moderate to severe. 4-5 additional swallows reduced residue to mild to moderate BASE OF TONGUE: Moderate to severe. 4-5 additional swallows reduced residue to mild to moderate CONCLUSION: 1. Penetration and aspiration as described above. Please refer to speech pathology report for detailed description and recommendations. 2. Stable Zenker's diverticulum. 3. Stable carotid clamp. Dictated by: Gena Jung M.D. on 03/02/2018 at 17:06 Electronically approved by: Gena Jung M.D. on 03/02/2018 at 17:07
[2018-03-02] MEDS: CLONIDINE HCL 0.1 MG TAB PO PRN (23:47)
[2018-03-03] VITALS (8 sets, daily range): BP systolic 105–167; BP diastolic 56–77
[2018-03-03 03:24] LABS: BASOPHILS % 0.4 % (0.0-1.0); EOSINOPHILS # (AUTO) 0.2 (0.0-0.4); EOSINOPHILS % 2.9 % (0.0-6.0); HEMATOCRIT 33.1 % (34.2-44.1); HEMOGLOBIN 10.4 g/dL (12.0-16.0); LYMPHOCYTES # (AUTO) 0.9 (1.0-3.2); LYMPHOCYTES % 16.8 % (18.0-39.1); MEAN CORPUSCULAR HEMOGLOBIN 31.5 pg (28-32); MEAN CORPUSCULAR HGB CONC 31.4 g/dL (31-35); MEAN CORPUSCULAR VOLUME 100.3 fL (81-99); MONOCYTES # (AUTO) 0.5 (0.2-0.8); MONOCYTES % 9.7 % (4.4-11.3); NEUTROPHILS # (AUTO) 3.9 (2.1-6.9); NEUTROPHILS % 69.7 % (38.7-80.0); PLATELET COUNT 120 x10e3/uL (140-360); RED CELL DISTRIBUTION WIDTH 13.5 % (11.7-14.4)
[2018-03-03 03:41] LABS: ANION GAP 15.9 mmol/L (8-16); CALCIUM 9.6 mg/dL (8.4-10.2); CREATININE, SERUM 3.69 mg/dL (0.57-1.11); MAGNESIUM 2.1 MG/DL (1.3-2.1); POTASSIUM 3.9 mmol/L (3.5-5.1)
[2018-03-03 04:00] LABS: FERRITIN 1131.96 ng/mL (4.63-204.00)
[2018-03-03 04:26] LABS: FOLATE 8.5 ng/mL (7.0-15.4)
--- NOTE | 2018-03-03 06:35 | Diagnostic Imaging Report ---
CHEST SINGLE (PORTABLE), 03/03/2018 5:00 AM Technique: CHEST SINGLE (PORTABLE) Comparison: 11/12/2017 Clinical history: Pneumonia Findings: See Impression Impression: 1. Stable cardiomediastinal silhouette given rotation. 2. Left greater than right bibasilar opacity, favor aspiration/infection superimposed on scarring. 3. Small left pleural effusion and/or scarring. Signed by: Dr Smita Celaya MD on 03/03/2018 6:32 AM
[2018-03-03] MEDS: DOCUSATE SODIUM 100 MG CAP PO SCH ×2 (08:50→17:48)
[2018-03-03] MEDS: SEVELAMER CARBONATE 800 MG TAB PO SCH ×3 (08:50→16:22)
[2018-03-03] MEDS: FERROUS SULFATE 325 MG TAB PO SCH (08:50)
[2018-03-03] MEDS: CINACALCET 30 MG TAB PO SCH (08:50)
[2018-03-03] MEDS: PANTOPRAZOLE SOD 40 MG TABEC PO SCH (08:50)
[2018-03-03] MEDS: FAMOTIDINE 20 MG TAB PO SCH ×2 (08:50→15:43)
[2018-03-03] MEDS: NYSTATIN SUSPENSION 5 ML UDC PO SCH ×2 (12:47→17:48)
[2018-03-03] MEDS ORDERED: CEFAZOLIN SOD 1 GM VIAL IV SCH ×2 (15:00)
[2018-03-03] MEDS ORDERED: CEFAZOLIN SOD 1 GM VIAL ONE (15:32)
[2018-03-03] MEDS: CEFAZOLIN SOD IV SCH (15:44)
[2018-03-03] MEDS: SODIUM CHLORIDE 0.9% IV SCH (15:44)
[2018-03-04] VITALS (7 sets, daily range): BP systolic 140–162; BP diastolic 65–75
[2018-03-04] MEDS: NYSTATIN SUSPENSION 5 ML UDC PO SCH ×4 (01:01→18:33)
[2018-03-04 05:21] LABS: BASOPHILS # (AUTO) 0.1 (0.0-0.1); BASOPHILS % 0.9 % (0.0-1.0); EOSINOPHILS # (AUTO) 0.2 (0.0-0.4); EOSINOPHILS % 3.1 % (0.0-6.0); HEMOGLOBIN 10.9 g/dL (12.0-16.0); LYMPHOCYTES % 18.1 % (18.0-39.1); MEAN CORPUSCULAR HEMOGLOBIN 31.9 pg (28-32); MEAN CORPUSCULAR HGB CONC 31.1 g/dL (31-35); MEAN CORPUSCULAR VOLUME 102.3 fL (81-99); MONOCYTES # (AUTO) 0.5 (0.2-0.8); MONOCYTES % 9.6 % (4.4-11.3); NEUTROPHILS # (AUTO) 3.7 (2.1-6.9); NEUTROPHILS % 67.6 % (38.7-80.0); PLATELET COUNT 136 x10e3/uL (140-360); RED BLOOD COUNT 3.42 x10e6/uL (3.6-5.1); RED CELL DISTRIBUTION WIDTH 13.5 % (11.7-14.4)
[2018-03-04 05:32] LABS: ANION GAP 14.4 mmol/L (8-16); CALCIUM 9.9 mg/dL (8.4-10.2); CREATININE, SERUM 3.09 mg/dL (0.57-1.11); POTASSIUM 4.4 mmol/L (3.5-5.1)
[2018-03-04] MEDS: FAMOTIDINE 20 MG TAB PO SCH ×2 (07:41→16:30)
[2018-03-04] MEDS: SEVELAMER CARBONATE 800 MG TAB PO SCH ×3 (08:00→17:28)
[2018-03-04] MEDS: CINACALCET 30 MG TAB PO SCH (09:32)
[2018-03-04] MEDS: DOCUSATE SODIUM 100 MG CAP PO SCH ×2 (09:32→17:28)
[2018-03-04] MEDS: PANTOPRAZOLE SOD 40 MG TABEC PO SCH (09:32)
[2018-03-04] MEDS: FERROUS SULFATE 325 MG TAB PO SCH (09:32)
[2018-03-05] VITALS (8 sets, daily range): BP systolic 123–174; BP diastolic 55–78
[2018-03-05 05:00] LABS: BASOPHILS % 0.7 % (0.0-1.0); EOSINOPHILS # (AUTO) 0.3 (0.0-0.4); EOSINOPHILS % 4.2 % (0.0-6.0); HEMATOCRIT 36.1 % (34.2-44.1); HEMOGLOBIN 11.4 g/dL (12.0-16.0); LYMPHOCYTES # (AUTO) 0.9 (1.0-3.2); MEAN CORPUSCULAR HEMOGLOBIN 31.6 pg (28-32); MEAN CORPUSCULAR HGB CONC 31.6 g/dL (31-35); MONOCYTES # (AUTO) 0.7 (0.2-0.8); MONOCYTES % 11.1 % (4.4-11.3); NEUTROPHILS # (AUTO) 4.1 (2.1-6.9); NEUTROPHILS % 68.3 % (38.7-80.0); PLATELET COUNT 160 x10e3/uL (140-360); RED BLOOD COUNT 3.61 x10e6/uL (3.6-5.1); RED CELL DISTRIBUTION WIDTH 13.1 % (11.7-14.4)
[2018-03-05 05:14] LABS: ANION GAP 16.5 mmol/L (8-16); CREATININE, SERUM 4.04 mg/dL (0.57-1.11); MAGNESIUM 2.1 MG/DL (1.3-2.1); POTASSIUM 4.5 mmol/L (3.5-5.1)
[2018-03-05] MEDS: NYSTATIN SUSPENSION 5 ML UDC PO SCH ×4 (06:00→17:04)
[2018-03-05] MEDS: FAMOTIDINE 20 MG TAB PO SCH ×2 (07:45→16:20)
[2018-03-05] MEDS: SEVELAMER CARBONATE 800 MG TAB PO SCH ×3 (07:45→17:04)
[2018-03-05] MEDS: FERROUS SULFATE 325 MG TAB PO SCH (08:20)
[2018-03-05] MEDS: PANTOPRAZOLE SOD 40 MG TABEC PO SCH (08:20)
[2018-03-05] MEDS: DOCUSATE SODIUM 100 MG CAP PO SCH ×2 (08:20→17:04)
[2018-03-05] MEDS: CINACALCET 30 MG TAB PO SCH (09:00)
[2018-03-05] MEDS: CLONIDINE HCL 0.1 MG TAB PO PRN (21:50)
[2018-03-06] VITALS (8 sets, daily range): BP systolic 106–174; BP diastolic 49–82
[2018-03-06] MEDS: NYSTATIN SUSPENSION 5 ML UDC PO SCH ×5 (00:02→23:58)
[2018-03-06 03:25] LABS: BASOPHILS % 0.4 % (0.0-1.0); EOSINOPHILS # (AUTO) 0.1 (0.0-0.4); EOSINOPHILS % 0.5 % (0.0-6.0); HEMOGLOBIN 11.1 g/dL (12.0-16.0); LYMPHOCYTES # (AUTO) 0.5 (1.0-3.2); LYMPHOCYTES % 5.5 % (18.0-39.1); MEAN CORPUSCULAR HEMOGLOBIN 32.2 pg (28-32); MEAN CORPUSCULAR HGB CONC 32.6 g/dL (31-35); MEAN CORPUSCULAR VOLUME 98.6 fL (81-99); MONOCYTES # (AUTO) 0.7 (0.2-0.8); MONOCYTES % 6.8 % (4.4-11.3); NEUTROPHILS # (AUTO) 8.3 (2.1-6.9); NEUTROPHILS % 86.4 % (38.7-80.0); PLATELET COUNT 198 x10e3/uL (140-360); RED BLOOD COUNT 3.45 x10e6/uL (3.6-5.1); RED CELL DISTRIBUTION WIDTH 13.2 % (11.7-14.4)
[2018-03-06 04:11] LABS: ANION GAP 19.1 mmol/L (8-16); CALCIUM 10.3 mg/dL (8.4-10.2); CREATININE, SERUM 5.51 mg/dL (0.57-1.11); MAGNESIUM 2.1 MG/DL (1.3-2.1); POTASSIUM 5.1 mmol/L (3.5-5.1)
[2018-03-06] MEDS ORDERED: SODIUM CHLORIDE 0.9% 100 ML 100 ML ONE (07:27)
[2018-03-06] MEDS: FAMOTIDINE 20 MG TAB PO SCH ×2 (07:30→17:49)
[2018-03-06 07:44] LABS: INR 0.99; PROTHROMBIN TIME 12.3 seconds (11.9-14.5)
[2018-03-06 07:45] LABS: PARTIAL THROMBOPLASTIN TIME 31.3 seconds (23.8-35.5)
[2018-03-06] MEDS: SEVELAMER CARBONATE 800 MG TAB PO SCH ×3 (08:00→17:49)
[2018-03-06] MEDS: CINACALCET 30 MG TAB PO SCH (09:00)
[2018-03-06] MEDS: DOCUSATE SODIUM 100 MG CAP PO SCH ×2 (09:00→17:49)
[2018-03-06] MEDS: FERROUS SULFATE 325 MG TAB PO SCH (09:00)
[2018-03-06] MEDS: PANTOPRAZOLE SOD 40 MG TABEC PO SCH (09:00)
[2018-03-06] MEDS ORDERED: HEPARIN SOD (PORCINE) 1000 UNIT/ML 30ML ONE (09:10)
[2018-03-06] MEDS ORDERED: CEFAZOLIN SOD 1 GM VIAL ONE (14:43)
--- NOTE | 2018-03-06 14:52 | Diagnostic Imaging Report ---
PROCEDURE:TUNNELLED CVC INSERT W/O PORT -Right IJ dual lumen tunneled small bore catheter placement with ultrasound and fluoroscopic guidance COMPARISON:None. INDICATIONS:Requiring custodial central venous access for IV antibiotics. FINDINGS: Informed consent was obtained. The patient was prepped and draped in the usual sterile fashion. After local administration of 1% subcutaneous lidocaine, the right internal jugular vein was accessed under sonographic guidance with a 5 [place] micropuncture set. An .018'' inch wire was placed into the IVC to maintain access. A 5 [place] peel-away sheath was placed into the right IJ. Attention was then turned to formation of subcutaneous tunnel. A small incision was made in the right chest. After local anesthesia with lidocaine, a subcutaneous tunnel was formed below dissection from the chest incision to venotomy and the catheter was tunneled. Subsequently utilizing an .018 inch wire, the distance from the venotomy to the expected catheter tip position was measured and the catheter was cut to appropriate length. The catheter was inserted through the peel-away sheath with controlled respiration and then the peel-away sheath was removed. Catheter tip was fluoroscopically confirmed to terminate at the cavoatrial junction without evidence of kinking or pneumothorax. Catheter details: dual lumen x 22 cm cuff to tip. Both catheter lumens were aspirated with excellent flow. Each of the catheter lumens were flushed with 5 cc 1000 units per cc of heparin. Catheter was secured in place with 3-0 Ethilon sutures and sterile dressing. The venotomy site was covered with Steri-Strips and sterile dressing. The patient tolerated procedure well without immediate complication. CONCLUSION: Right IJ dual lumen tunneled small bore catheter placement with fluoroscopic and ultrasound guidance as above. Catheter is ready for immediate use. Dictated by: XIN YORK M.D. on 03/06/2018 at 11:03 Electronically approved by: XIN YORK M.D. on 03/06/2018 at 11:03
--- NOTE | 2018-03-06 14:52 | Diagnostic Imaging Report ---
PROCEDURE:TUNNELLED CVC INSERT W/O PORT -Right IJ dual lumen tunneled small bore catheter placement with ultrasound and fluoroscopic guidance COMPARISON:None. INDICATIONS:Requiring assisted central venous access for IV antibiotics. FINDINGS: Informed consent was obtained. The patient was prepped and draped in the usual sterile fashion. After local administration of 1% subcutaneous lidocaine, the right internal jugular vein was accessed under sonographic guidance with a 5 [place]ian micropuncture set. An .018'' inch wire was placed into the IVC to maintain access. A 5 [place] peel-away sheath was placed into the right IJ. Attention was then turned to formation of subcutaneous tunnel. A small incision was made in the right chest. After local anesthesia with lidocaine, a subcutaneous tunnel was formed below dissection from the chest incision to venotomy and the catheter was tunneled. Subsequently utilizing an .018 inch wire, the distance from the venotomy to the expected catheter tip position was measured and the catheter was cut to appropriate length. The catheter was inserted through the peel-away sheath with controlled respiration and then the peel-away sheath was removed. Catheter tip was fluoroscopically confirmed to terminate at the cavoatrial junction without evidence of kinking or pneumothorax. Catheter details: dual lumen x 22 cm cuff to tip. Both catheter lumens were aspirated with excellent flow. Each of the catheter lumens were flushed with 5 cc 1000 units per cc of heparin. Catheter was secured in place with 3-0 Ethilon sutures and sterile dressing. The venotomy site was covered with Steri-Strips and sterile dressing. The patient tolerated procedure well without immediate complication. CONCLUSION: Right IJ dual lumen tunneled small bore catheter placement with fluoroscopic and ultrasound guidance as above. Catheter is ready for immediate use. Dictated by: XIN YORK M.D. on 03/06/2018 at 11:03 Electronically approved by: XIN YORK M.D. on 03/06/2018 at 11:03
[2018-03-06] MEDS: SODIUM CHLORIDE 0.9% IV SCH (15:15)
[2018-03-06] MEDS: CEFAZOLIN SOD IV SCH (15:15)
[2018-03-07] VITALS: BP 124/59
[2018-03-07 03:10] LABS: BASOPHILS % 0.4 % (0.0-1.0); EOSINOPHILS # (AUTO) 0.2 (0.0-0.4); EOSINOPHILS % 2.6 % (0.0-6.0); HEMATOCRIT 33.3 % (34.2-44.1); HEMOGLOBIN 10.6 g/dL (12.0-16.0); LYMPHOCYTES # (AUTO) 0.9 (1.0-3.2); LYMPHOCYTES % 12.2 % (18.0-39.1); MEAN CORPUSCULAR HEMOGLOBIN 31.3 pg (28-32); MEAN CORPUSCULAR HGB CONC 31.8 g/dL (31-35); MEAN CORPUSCULAR VOLUME 98.2 fL (81-99); MONOCYTES # (AUTO) 0.5 (0.2-0.8); MONOCYTES % 6.2 % (4.4-11.3); NEUTROPHILS # (AUTO) 5.9 (2.1-6.9); NEUTROPHILS % 77.9 % (38.7-80.0); PLATELET COUNT 198 x10e3/uL (140-360); RED BLOOD COUNT 3.39 x10e6/uL (3.6-5.1); RED CELL DISTRIBUTION WIDTH 13.2 % (11.7-14.4)
[2018-03-07 03:29] LABS: ANION GAP 17.2 mmol/L (8-16); CREATININE, SERUM 3.4 mg/dL (0.57-1.11); MAGNESIUM 1.9 MG/DL (1.3-2.1); POTASSIUM 4.2 mmol/L (3.5-5.1)
[2018-03-07 04:00] VITALS: BP 112/56
[2018-03-07] MEDS: NYSTATIN SUSPENSION 5 ML UDC PO SCH ×2 (05:35→12:06)
[2018-03-07 07:20] VITALS: BP 137/59
[2018-03-07 07:48] VITALS: BP 137/59
[2018-03-07] MEDS ORDERED: BISACODYL 5 MG TAB EC PO ONE (08:15)
[2018-03-07] MEDS: PANTOPRAZOLE SOD 40 MG TABEC PO SCH (08:24)
[2018-03-07] MEDS: FAMOTIDINE 20 MG TAB PO SCH (08:24)
[2018-03-07] MEDS: SEVELAMER CARBONATE 800 MG TAB PO SCH ×2 (08:24→12:06)
[2018-03-07] MEDS: DOCUSATE SODIUM 100 MG CAP PO SCH (08:24)
[2018-03-07] MEDS: FERROUS SULFATE 325 MG TAB PO SCH (08:24)
[2018-03-07 11:49] VITALS: BP 110/49
[2018-03-07] MEDS ORDERED: CEFAZOLIN SODI500 MG IV (15:36)
[2018-03-07] MEDS ORDERED: CEFAZOLIN1 GM/50 ML IVP (15:41)
[2018-03-07 16:04] VITALS: BP 124/64
--- NOTE | 2018-03-07 18:21 | Discharge Summary ---
ADMISSION DIAGNOSES 1. Sepsis. 2. Underweight. 3. Chronic congestive heart failure. 4. Pulmonary edema. 5. End-stage renal disease on dialysis. 6. Secondary hyperparathyroidism. 7. Gastritis. 8. Gastroesophageal reflux disease. 9. Acute gastroenteritis. DISCHARGE DIAGNOSES 1. Sepsis. 2. Underweight. 3. Chronic congestive heart failure. 4. Pulmonary edema. 5. End-stage renal disease on dialysis. 6. Secondary hyperparathyroidism. 7. Gastritis. 8. Gastroesophageal reflux disease. 9. Acute gastroenteritis. 10. Esophageal dysfunction. HISTORY: The patient has a history of end-stage renal disease on dialysis since 2012, hypertension, GERD, gastritis, esophageal stricture, anemia of chronic disease, secondary hyperparathyroidism, Zenker's diverticulum, ambulatory dysfunction needing use of walker. HOSPITAL COURSE: An 87-year-old woman with history of end-stage renal disease on dialysis now developing nausea, vomiting and cough. She denies diarrhea as well as fever, chills and sweats. On admission, the patient was started on Zithromax and ceftriaxone. On admission, the patient had a chest x-ray which showed mild prominence of the interstitial markings which may represent edema superimposed on a background of chronic interstitial changes, stable mild prominence of the cardiac silhouette with mild central pulmonary venous congestion. The patient had MBS which showed silent trace aspiration of thin liquids and juice portion of mixed mechanical soft. Aspiration of thick, puree was suspected but not visualized. NMES therapy was started per speech recommendation. The patient was also with therapy 3 times a week per speech therapy recommendation. The patient had blood cultures which showed Staph of the blood. An echo was done per cardiology. Echo showed an EF between 55% to 60%. There was moderate LVH, moderate aortic valve sclerosis without stenosis, mild to moderate mitral regurgitation, and a large 1.4 x 1.5 cm hyperechoic density adherent to the posterior mitral valve leaflet. Vegetation noted. There was also trace pulmonic regurg. Per ID, the patient was started on cefazolin with each dialysis. Per ID, she will need a total of 8 weeks IV antibiotics for the vegetation noted on the echo. The patient had a central line placed on the right chest for daily IV antibiotics to be given at home with home health. The patient will discharge home with her daughter who was instructed on the process for home health and IV antibiotics. The patient had a urine culture which was negative and her repeat blood cultures in the were negative. Once IV antibiotics setup and her NMES therapy was set up for home, the patient was discharged home. Vital signs stable. On the day of discharge, WBC 7.61, hemoglobin 10.6, hematocrit 33.3, sodium 136, potassium 4.2, creatinine 3.4. GFR of 13. The patient will discharge home today and follow up with Dr. Preston as discussed. She will also resume her normal dialysis schedule. The patient refused home physical therapy as well as SNF placement. She has a walker at home already. The patient and family agree to discharge plan and followup and are ready to go home. Dictated by: Parul Philippe NP VENU HOFFMAN MD Job#: [id number]
== END 2018-03-07 16:24 | disposition home or self-care (01) | DRG 871 ==
LOC: ER 15:51 → ERHOLD 20:33 → MED/SURG3 02-28 01:00
PROVIDERS: ADMIT Internal Medicine; ATTEND Internal Medicine
PROC: 5A1D70Z Performance of Urinary Filtration, Intermittent, Less than 6 Hours Per Day (ICD-10-PCS; 2018-03-01)
PROC: 5A1D70Z Performance of Urinary Filtration, Intermittent, Less than 6 Hours Per Day (ICD-10-PCS; principal; 2018-03-06)
PROC: 02HV33Z Insertion of Infusion Device into Superior Vena Cava, Percutaneous Approach (ICD-10-PCS; 2018-03-06)
PROC: B5181ZA Fluoroscopy of Superior Vena Cava using Low Osmolar Contrast, Guidance (ICD-10-PCS; 2018-03-06)
PROC: 0JH63XZ Insertion of Tunneled Vascular Access Device into Chest Subcutaneous Tissue and Fascia, Percutaneous Approach (ICD-10-PCS; 2018-03-06)
DX: A41.01 Sepsis due to Methicillin susceptible Staphylococcus aureus (principal); J18.9 Pneumonia, unspecified organism; N18.6 End stage renal disease; E43 Unspecified severe protein-calorie malnutrition; I33.0 Acute and subacute infective endocarditis; N39.0 Urinary tract infection, site not specified; Z68.1 Body mass index [BMI] 19.9 or less, adult; N25.81 Secondary hyperparathyroidism of renal origin; J81.1 Chronic pulmonary edema; E87.1 Hypo-osmolality and hyponatremia; I13.2 Hypertensive heart and chronic kidney disease with heart failure and with stage 5 chronic kidney disease, or end stage renal disease; Z99.2 Dependence on renal dialysis; I50.9 Heart failure, unspecified; K21.9 Gastro-esophageal reflux disease without esophagitis; D63.1 Anemia in chronic kidney disease; K52.9 Noninfective gastroenteritis and colitis, unspecified; E03.9 Hypothyroidism, unspecified; I08.0 Rheumatic disorders of both mitral and aortic valves; R13.10 Dysphagia, unspecified; F17.210 Nicotine dependence, cigarettes, uncomplicated; R35.0 Frequency of micturition; D63.8 Anemia in other chronic diseases classified elsewhere; E11.22 Type 2 diabetes mellitus with diabetic chronic kidney disease; Z79.84 Long term (current) use of oral hypoglycemic drugs
CPT/HCPCS: 36415; 36558; 71045; 74230; 74470; 76937; 77001; 80048; 80053; 81001; 82150; 82550; 82553; 82607; 82728; 82746; 82948; 83540; 83605; 83690; 83735; 83880; 83970; 84100; 84466; 84484; 85025; 85610; 85730; 86704; 86706; 87040; 87071; 87086; 87186; 87205; 87340; 90962; 93005; 93306; 97139; 99152; 99153; 99284; J0456; J0690; J0696; J1644; J2001; J3370; J7030; J7050

== ENCOUNTER → 2018-03-26 | Day surgery (SDC) | payer MEDICARE, BC ==
[~2018-03-26] MED LIST changes: +ASPIR 8181 MG PO; +CEFAZOLIN SODI500 MG IV; +CEFAZOLIN1 GM/50 ML IVP; +EPINEPHRINE HCL INJ 1 MG/ML AMP IV ONE; +LEVOTHYROXINE PO; +RENVELA0.8 GM PO; +SODIUM CHLORIDE 0.9% 500ML 500 ML ONE
--- NOTE | 2018-03-26 12:12 | Operative Report ---
DATE OF PROCEDURE: March 26, 2018 REFERRING PHYSICIAN: Dr. Mikhail Palma PROCEDURE PERFORMED: Esophagogastroduodenoscopy with esophageal dilatation. INDICATIONS FOR PROCEDURE: Dysphagia to solids, liquids. Patient is status post Zenker's diverticulum repair. MEDICATION: Patient was done under MAC. Please see anesthesiologist's note. PROCEDURE: Patient in left later decubitus position, flexible fiberoptic Olympus gastroscope was introduced into the esophagus under direct visualization without any difficulty. There was some patchy erythema noted in distal esophagus. Esophagus was then dilated to a size 16 Savory over a wire, then up to size 52 per Rucker dilators. The scope was then advanced with ease into the stomach traversing a small hiatal hernia. Mucosa overlying the antrum and the body revealed some patchy intense erythema and moderate edema and biopsies were obtained, sent to stain for H. pylori. Pylorus appeared to be of normal contour and shape, was intubated with ease and the scope was advanced all the way to the 2nd portion of the duodenum. The scope was then withdrawn slowly. Mucosa overlying the proximal 2nd portion and the duodenal bulb appeared to be within normal limits. The scope was then withdrawn back into the stomach, retroflexed and the mucosa overlying the fundus grossly appeared to be within normal limits. The previously described hiatal hernia was also noted in the retroflexed position. The scope was then straightened out. It was subsequently withdrawn. Patient tolerated the procedure well. IMPRESSION 1. Distal esophagitis, mild. 2. Esophageal stricture dilated to size 16 Savory over a wire, and size 52-[place] Rucker. 3. A small hiatal hernia. 4. Gastritis, biopsied. Biopsies sent to stain for H. pylori. PLAN: Follow up histology. Continue Protonix 40 mg one p.o. q.a.m. a.c. Job#: [id number] DG cc:MIKHAIL PALMA MD
== END | disposition home or self-care (01) ==
LOC: ENDO 08:45
PROVIDERS: ATTEND Internal Medicine Gastroenterology
DX: K22.2 Esophageal obstruction (principal); K29.70 Gastritis, unspecified, without bleeding; K20.9 Esophagitis, unspecified; K44.9 Diaphragmatic hernia without obstruction or gangrene; K21.9 Gastro-esophageal reflux disease without esophagitis; D64.9 Anemia, unspecified; E03.9 Hypothyroidism, unspecified; N18.6 End stage renal disease; Z99.2 Dependence on renal dialysis; Z98.890 Other specified postprocedural states; Z88.0 Allergy status to penicillin; Z79.82 Long term (current) use of aspirin
CPT/HCPCS: 36415; 43239; 43248; 84132; 88305; 88312; J0171; J7040; 43450

== ENCOUNTER → 2018-04-20 | Outpatient (RCR) | payer MEDICARE, BC ==
[~2018-04-20] MED LIST changes: -EPINEPHRINE HCL INJ 1 MG/ML AMP IV ONE; -SODIUM CHLORIDE 0.9% 500ML 500 ML ONE
== END ==
LOC: ST 10:22
PROVIDERS: ATTEND Internal Medicine Gastroenterology
DX: R13.13 Dysphagia, pharyngeal phase (principal)
CPT/HCPCS: 92526; 92610; 97112; G8997

== ENCOUNTER 2018-05-18 08:51 | Outpatient (RCR) | payer MEDICARE, BC | END 2018-05-20 | LOC: ST 08:51 | PROVIDERS: ATTEND Internal Medicine Gastroenterology | DX: R13.10 Dysphagia, unspecified (principal); M54.6 Pain in thoracic spine; M54.5 Low back pain | CPT/HCPCS: 97139 ==

== ENCOUNTER 2018-05-28 10:00 | Outpatient (RCR) | payer MEDICARE, BC | END 2018-06-20 | LOC: ST 10:00 | PROVIDERS: ATTEND Internal Medicine Gastroenterology | DX: R13.13 Dysphagia, pharyngeal phase (principal) | CPT/HCPCS: 97139 ==

== ENCOUNTER → 2018-06-08 | Outpatient (CLI) | payer MEDICARE, BC ==
--- NOTE | 2018-06-08 13:28 | Diagnostic Imaging Report ---
EXAM: Modified barium swallow INDICATION: Dysphagia COMPARISON: No relevant priors. Correlation is made with a CT of the cervical spine performed 04/27/2017 TECHNIQUE: This examination was conducted in conjunction with speech pathologist. Patient was given, by mouth, multiple textures including thin liquid, thick liquid, pudding RADIATION DOSE: Fluoroscopy Time: 3.7 min Dose (Kerma) Area Product: 17.70 mGycm2 Air Kerma (AK) value has been reviewed. It is below the limits set by the Radiation Protocol Committee (RPC) committee. FINDINGS: Cube shaped medical claims analyst in the lower right neck is stable. 1. Premature spillage with all consistencies. 2. Delay in swallow initiation. 3. Laryngeal penetration with all consistencies. 4. Aspiration with thin liquids and mixed mechanical soft consistency. Chin tuck maneuver not successful. Aspiration of thick and pureed suspected. 5. Vallecular and pyriform sinus residue present. IMPRESSION: Penetration and aspiration. Please see speech pathology report for detailed description and recommendations. Signed by: Dr. Gena Jung MD on 06/08/2018 1:24 PM
== END ==
LOC: DX 10:00
PROVIDERS: ATTEND Internal Medicine Gastroenterology
DX: R13.10 Dysphagia, unspecified (principal)
CPT/HCPCS: 74230; 92611; G8996; G8997

== ENCOUNTER 2018-07-01 13:31 | Inpatient (IN) | payer MEDICARE, BC ==
[~2018-07-01] VITALS: Ht 165.1 cm; Wt 45.7 kg
[2018-07-01] VITALS (13 sets, daily range): BP systolic 86–106; BP diastolic 47–60
[2018-07-01] MEDS ORDERED: ACETAMINOPHEN 650 MG SUPP PR ONE (14:04)
[2018-07-01] MEDS ORDERED: ACETAMINOPHEN 325 MG SUPP ONE (14:04)
[2018-07-01 14:36] LABS: BASOPHILS % 0.2 % (0.0-1.0); HEMATOCRIT 35.9 % (34.2-44.1); HEMOGLOBIN 11.3 g/dL (12.0-16.0); LYMPHOCYTES # (AUTO) 0.3 (1.0-3.2); LYMPHOCYTES % 2.9 % (18.0-39.1); MEAN CORPUSCULAR HEMOGLOBIN 30.6 pg (28-32); MEAN CORPUSCULAR HGB CONC 31.5 g/dL (31-35); MEAN CORPUSCULAR VOLUME 97.3 fL (81-99); MONOCYTES # (AUTO) 0.3 (0.2-0.8); MONOCYTES % 3.3 % (4.4-11.3); NEUTROPHILS # (AUTO) 8.8 (2.1-6.9); NEUTROPHILS % 92.9 % (38.7-80.0); PLATELET COUNT 158 x10e3/uL (140-360); RED BLOOD COUNT 3.69 x10e6/uL (3.6-5.1); RED CELL DISTRIBUTION WIDTH 14.1 % (11.7-14.4)
[2018-07-01 14:55] LABS: ALBUMIN/GLOBULIN RATIO 0.8 (0.8-2.0); ANION GAP 19.1 mmol/L (8-16); CALCIUM 11.3 mg/dL (8.4-10.2); CREATININE, SERUM 3.42 mg/dL (0.57-1.11); POTASSIUM 4.1 mmol/L (3.5-5.1)
[2018-07-01] MEDS ORDERED: ACETAMINOPHEN 325 MG SUPP PR ONE (15:00)
--- NOTE | 2018-07-01 15:08 | Diagnostic Imaging Report ---
EXAMINATION: CHEST 2 VIEWS INDICATION: ^SEPSIS ^[id number] ^1440 ^Y COMPARISON: 03/03/2018 FINDINGS: PA and lateral views TUBES and LINES: None. LUNGS: Lungs are well inflated. Pulmonary vascular congestion and mild interstitial edema. PLEURA: No visible pneumothorax. Suspected small left pleural effusion. HEART AND MEDIASTINUM: The cardiomediastinal silhouette is enlarged. Aorta is calcified and tortuous. BONES AND SOFT TISSUES: Evaluation is very limited due to generalized demineralization. Exaggerated kyphosis of the thoracic spine. Soft tissues are unremarkable. UPPER ABDOMEN: No free air under the diaphragm. IMPRESSION: Enlarged cardiac mediastinal silhouette, pulmonary vascular congestion, and mild interstitial edema. Small left pleural effusion. Underlying infiltrate cannot be entirely excluded. Signed by: Dr. Sridhar Poe MD on 07/01/2018 3:05 PM
[2018-07-01] MEDS ORDERED: SODIUM CHLORIDE 0.9% 500ML 500 ML IV ONE (16:15)
[2018-07-01 16:35] LABS: CLARITY,URINE HAZY (CLEAR); COLOR,URINE YELLOW (YELLOW)
[2018-07-01 16:36] LABS: BILIRUBIN,URINE NEGATIVE (NEGATIVE); KETONES,URINE NEGATIVE (NEGATIVE); LEUKOCYTE ESTERASE ,URINE NEGATIVE (NEGATIVE); NITRITE,URINE NEGATIVE (NEGATIVE); PROTEIN,URINE DIPSTICK 3+ (NEGATIVE); URINE UROBILINOGEN 0.2 mg/dL (0.2 - 1)
[2018-07-01] MEDS ORDERED: IBUPROFEN 100 MG/5 ML SUSP PO ONE (17:00)
[2018-07-01] MEDS ORDERED: VANCOMYCIN 1GM/NS 250 ML 250 ML IV ONE ×2 (17:00→20:00)
[2018-07-01 17:11] LABS: AMORPHOUS SEDIMENT,URINE FEW (FEW); BACTERIA,URINE FEW /HPF; EPITHELIAL CELLS,URINE FEW /LPF; WBC,URINE (MAN) 0-5 /HPF (0-5)
[2018-07-01 17:26] LABS: BAND NEUTROPHILS % (MANUAL) 4 %; LYMPHOCYTES % (MANUAL) 3 % (19-48); MONOCYTES % (MANUAL) 6 % (3.4-9.0); NEUTROPHILS % (MANUAL) 87 % (40-74); POLYCHROMASIA FEW
[2018-07-01 17:28] LABS: PLATELET ESTIMATE ADEQUATE; PLATELET MORPHOLOGY COMMENT FEW GIANT
[2018-07-01] MEDS ORDERED: DIGOXIN INJ 0.25 MG/ML 2 ML AMP IV ONE (18:00)
[2018-07-01] MEDS ORDERED: CEFEPIME HCL 1 GM VIAL IV ONE ×2 (18:00→21:00)
[2018-07-01 18:03] LABS: CREATINE KINASE MB 0.9 ng/mL (0-5.0)
[2018-07-01] MEDS ORDERED: METOPROLOL TARTRATE INJ 1 MG/ML VIAL IV ONE (18:30)
[2018-07-01] MEDS ORDERED: ONDANSETRON HCL INJ 2 MG/ML VIAL IV PRN (18:45)
[2018-07-01] MEDS ORDERED: SODIUM CHLORIDE FLUSH 10 ML SYR INJ PRN (18:45)
[2018-07-01 19:26] LABS: CREATINE KINASE MB 1.1 ng/mL (0-5.0)
[2018-07-01] MEDS: CEFEPIME HCL 1 GM VIAL IV SCH (22:30)
[2018-07-02] VITALS (77 sets, daily range): BP systolic 77–134; BP diastolic 45–77
[2018-07-02 02:42] LABS: CREATINE KINASE MB 2.3 ng/mL (0-5.0)
--- NOTE | 2018-07-02 06:19 | Diagnostic Imaging Report ---
EXAMINATION: CHEST SINGLE (PORTABLE) INDICATION: ^R/O PNEUMONIA ^[id number] ^0515 ^Y COMPARISON: Chest x-ray 03/03/2018 FINDINGS: AP view TUBES and LINES: None. LUNGS/PLEURA: Interstitial changes with blunted left costophrenic sulcus and adjacent left basilar opacity, and hazy opacity of the left mid lung. HEART AND MEDIASTINUM: The cardiac silhouette is mildly enlarged. Aortic calcifications.. BONES AND SOFT TISSUES: No acute osseous lesion. Soft tissues are unremarkable. UPPER ABDOMEN: No free air under the diaphragm. IMPRESSION: Interstitial edema. Left pleural effusion and adjacent atelectasis versus pneumonia. Signed by: DR. Elliott Smiley MD on 07/02/2018 6:16 AM
[2018-07-02 07:29] LABS: BASOPHILS % 0.2 % (0.0-1.0); EOSINOPHILS % 0.1 % (0.0-6.0); HEMATOCRIT 32.9 % (34.2-44.1); HEMOGLOBIN 10.3 g/dL (12.0-16.0); LYMPHOCYTES # (AUTO) 0.5 (1.0-3.2); LYMPHOCYTES % 5.1 % (18.0-39.1); MEAN CORPUSCULAR HEMOGLOBIN 30.7 pg (28-32); MEAN CORPUSCULAR HGB CONC 31.3 g/dL (31-35); MEAN CORPUSCULAR VOLUME 97.9 fL (81-99); MONOCYTES # (AUTO) 0.7 (0.2-0.8); MONOCYTES % 6.6 % (4.4-11.3); NEUTROPHILS # (AUTO) 8.6 (2.1-6.9); NEUTROPHILS % 87.5 % (38.7-80.0); PLATELET COUNT 136 x10e3/uL (140-360); RED BLOOD COUNT 3.36 x10e6/uL (3.6-5.1)
[2018-07-02 08:03] LABS: ANION GAP 17.8 mmol/L (8-16); CALCIUM 11.2 mg/dL (8.4-10.2); CREATININE, SERUM 4.26 mg/dL (0.57-1.11); POTASSIUM 3.8 mmol/L (3.5-5.1)
[2018-07-02] MEDS: PANTOPRAZOLE SOD 40 MG TABEC PO SCH (08:53)
[2018-07-02] MEDS: SEVELAMER CARBONATE 800 MG TAB PO SCH ×3 (08:53→16:49)
[2018-07-02] MEDS: CEFEPIME HCL 1 GM VIAL IV SCH (08:53)
[2018-07-02] MEDS ORDERED: VANCOMYCIN 1GM/NS 250 ML 250 ML IV ONE (10:30)
--- NOTE | 2018-07-02 13:55 | Consultation ---
DATE OF CONSULTATION: July 02, 2018 CARDIOLOGY CONSULTATION REASON FOR CONSULTATION: Fever, chills and tachycardia. HISTORY: Information taken from the daughter who the patient stated takes care of her. She is very well known to me. She is 87. She does have hypertension, end-stage renal disease, on hemodialysis on Monday, and Monday, hypothyroidism, anemia. Patient was at this institution in February 2018. At that time, her echocardiogram showed vegetation on the mitral valve. Staph aureus has grown and diagnosed with mitral valve endocarditis established. Patient was given antibiotics by Dr. Preston. She was MSSA. The patient's blood cultures cleared. She was doing well. The fever seems to be happening for the last 3 days with fever, chills failure to thrive, and worsening condition. Patient came to this institution and admitted for further management. Cardiac consultation was obtained. I visited with the patient who apparently is a little bit lethargic. There is no chest pain. Shortness of breath is better. Her heart rate as per daughter is far much better since her temperature is down. There is no orthopnea. No paroxysmal nocturnal dyspnea. There is no syncope or presyncope. HOME MEDICATIONS 1. Aspirin 81 mg daily. 2. Levothyroxine 100 mcg a day. 3. Linzess 145 mcg daily. 4. Tylenol p.r.n. 5. Sensipar. 6. Protonix 40 mg a day. 7. Renvela 800 mg a day. ALLERGIES: PENICILLIN CAUSING "IRRITATION AND RASH." PAST MEDICAL HISTORY 1. End-stage renal disease, on hemodialysis since 2014. 2. Hypothyroidism. 3. Hypertension. 4. MSSA mitral valve in February 2018. 5. Chronic anemia. 6. GERD. 7. Varicose veins. 8. Left ureteral stent. 9. AV fistula in 2008. 10. Neck surgery in February 2016. FAMILY HISTORY: Mother at age 56. She was asthmatic and she had early Alzheimer's. Father in his 90s of old age. He had a history of emphysema. Nine siblings. All siblings are , but no premature coronary artery disease. SOCIAL HISTORY: She is a . She is a nonsmoker and not an alcohol drinker. She is staying with her daughter. REVIEW OF SYSTEMS GENERAL: Fever and chills. HEENT: Congestion. CARDIAC/PULMONARY: No chest pain. Shortness of breath with tachycardia. GI: Poor oral intake. HEMATOLOGY: Easy bruising but no bleeding. : No hematuria. No dysuria. MUSCULOSKELETAL: Back pain. NEUROLOGICAL: Patient is obtunded. She does have a tendency to fall, but no localized deficits. PHYSICAL EXAMINATION VITALS: On admission, temperature was 102 and currently at 99.3, blood pressure 110/60, heart rate of 90, respiratory rate of 18. HEENT: Pupils are reactive. NECK: No elevation of jugular venous pulsation. CHEST: Decreased lung expansion. HEART: PMI in the 5th left intercostal space. Normal 1st and 2nd heart sounds. ABDOMEN: Soft. EXTREMITIES: No cyanosis. No clubbing. No edema. NEUROLOGIC: Nonfocal. Patient is obtunded and weak. LAB DATA: White blood cell count of 9.8, hemoglobin of 10.3, hematocrit 33%. BUN of 33, creatinine of 3.42, sodium of 136, potassium 4.1. Troponin is elevated at 5.23, 3.74 and 3.3. IMPRESSION AND PLAN 1. Septicemia. 2. History of mitral valve endocarditis with positive blood culture. 3. End-stage renal disease, on dialysis. 4. Hypertension. 5. Anemia. 6. Debility. 7. Elevated troponin. Cardiac mitchell, my recommendation is to observe her clinical condition and volume status. I will give 1 g of vancomycin until the culture results come back and until she is seen by ID. Care will be conservative. Will follow the patient's progression with you. Prognosis is guarded. Job#: [id number] NM
--- NOTE | 2018-07-02 16:12 | Consultation ---
DATE OF CONSULTATION: July 02, 2018 Patient currently awake, but very lethargic. Partially follows commands. Denies any shortness of breath, nausea or vomiting. She is an existing dialysis patient of ours with multiple comorbidities. She has had a recent history of mitral valve endocarditis MSSA, was treated with IV antibiotics by Dr. Preston. History of underlying hypertension, hypothyroidism, anemia of chronic kidney disease, history of failure to thrive, history of GERD, history of left ureteral stent in the past, AV fistula in 2008, history of osteoarthritis. ALLERGIES: PENICILLIN. CURRENT LABS: White count 9.8, hemoglobin 10.3. Sodium 138, potassium 3.8, bicarbonate 26, BUN 50, creatinine 4.26, calcium 11.2. So far her cultures show gram-positive cocci in clusters. Identification is not done. Infectious disease is following. Patient currently is quite lethargic. Denies shortness of breath, nausea or vomiting. Has already received vancomycin IV. She is on cefepime 0.5 gram IV daily, ibuprofen p.r.n., metoprolol times 1, ondansetron p.r.n., pantoprazole 40 mg p.o. q.a.c., Renagel, Renvela 800 mg p.o. t.i.d. Received 0.5 liter of IV normal saline once. SOCIAL HISTORY: Does not smoke or drink. Lives with daughter. FAMILY HISTORY: Significant for hypertension. PHYSICAL EXAMINATION GENERAL: Awake, alert, lying supine. Thin-built female. Poor muscle mass. VITALS: Blood pressure 105/61. Pulse rate 96. Respiratory rate 16. Oxygen saturation 100%. HEAD AND NECK: Corneas are clear. Arcus senilis noted. Oral mucosa limited exam but moist. Neck veins not distended. No JVD. LUNGS: Decreased air entry bilaterally with left lower zone more than right. Occasional rales noted in right mid zone. HEART: S1 and S2 audible. Soft 2/6 to 3/6 ejection systolic murmur heard over left sternal border. ABDOMEN: Otherwise soft and nontender. LOWER EXTREMITIES: No edema. IMPRESSION AND PLAN 1. Underlying end-stage renal disease. 2. Evidence of possible pleural effusion. 3. Mild congestive heart failure, but well compensated. 4. Gram-positive cocci in blood, suspect uremia. 5. Blood pressure appears stable. 6. Hypercalcemia noted. Will repeat calcium level. 7. Currently no acute indication for dialysis. She is on a Monday, and Monday schedule. Dialysis nurse informed. Discussed with patient. Will follow with you. Job#: [id number]
--- NOTE | 2018-07-02 18:32 | Consultation ---
DATE OF CONSULTATION: July 02, 2018 REASON FOR CONSULTATION: Sepsis. HISTORY OF PRESENT ILLNESS: This patient is an elderly lady, currently in the intensive care unit at [facility]. There is really no family here. She is an 87-year-old white female who is confused now. She does have underlying history of end-stage renal disease on hemodialysis, Monday, , Monday, hypothyroidism, anemia, hypertension. The patient was brought to the hospital because she was confused. An echocardiogram showed there is vegetation on mitral valve back in February 2018. She had Staphylococcus bacteremia and endocarditis. She was given IV antibiotic for MSSA. The patient was doing well. The patient is coming now with worsening condition, fever and chills, altered mental status. No diarrhea. Patient is currently in intensive care unit. PAST MEDICAL HISTORY: As above. PAST SURGICAL HISTORY: As above. ALLERGIES: PENICILLIN CAUSES SKIN RASH. SOCIAL HISTORY: Does not smoke, no drug abuse, no alcohol abuse. FAMILY HISTORY: Mother at age 56 with asthma. Her father at age 90. PAST MEDICAL HISTORY: End-stage renal disease on hemodialysis since 2014, hypothyroidism, hypertension, MSSA, mitral valve endocarditis February 2018, GERD, varicose veins, left ureteral stent placement, AV fistula 2008. Neck surgery in 2014. HOME MEDICATIONS: She is on aspirin, levothyroxine, Protonix and Renvela. REVIEW OF SYSTEMS: Could not really be obtained. The patient is confused. LABORATORY DATA: Blood culture showing gram-positive cocci. The patient received 1 dose of vancomycin. PHYSICAL EXAMINATION: GENERAL: Alert, confused, does not seem to be in acute distress. VITAL SIGNS: Stable, currently afebrile. When she first came, she had 103.4. HEENT: Not icteric. NECK: Supple. CHEST: Clear. HEART: S1 and S2, no murmur. ABDOMEN: Soft. Bowel sounds present. No tenderness. No hepatosplenomegaly. IMPRESSION: Sepsis present on admission, concerned about recurrence of sepsis. RECOMMENDATIONS: Will give her vancomycin now and then after each hemodialysis. Obtain C-reactive protein. Obtain old records. Will follow with you. Thank you for asking me to see this patient. Job#: [id number]
[2018-07-03] VITALS (46 sets, daily range): BP systolic 89–143; BP diastolic 49–100
[2018-07-03 04:28] LABS: BASOPHILS % 0.2 % (0.0-1.0); EOSINOPHILS % 0.1 % (0.0-6.0); HEMATOCRIT 38.3 % (34.2-44.1); HEMOGLOBIN 11.9 g/dL (12.0-16.0); LYMPHOCYTES # (AUTO) 0.9 (1.0-3.2); LYMPHOCYTES % 8.1 % (18.0-39.1); MEAN CORPUSCULAR HEMOGLOBIN 30.8 pg (28-32); MEAN CORPUSCULAR HGB CONC 31.1 g/dL (31-35); MEAN CORPUSCULAR VOLUME 99.2 fL (81-99); MONOCYTES # (AUTO) 0.9 (0.2-0.8); NEUTROPHILS # (AUTO) 9.3 (2.1-6.9); NEUTROPHILS % 83.2 % (38.7-80.0); PLATELET COUNT 149 x10e3/uL (140-360); RED BLOOD COUNT 3.86 x10e6/uL (3.6-5.1); RED CELL DISTRIBUTION WIDTH 14.1 % (11.7-14.4)
[2018-07-03 04:58] LABS: ALBUMIN 2.6 g/dL (3.5-5.0); ALBUMIN/GLOBULIN RATIO 0.8 (0.8-2.0); ANION GAP 24.1 mmol/L (8-16); CALCIUM 10.6 mg/dL (8.4-10.2); CREATININE, SERUM 4.99 mg/dL (0.57-1.11); POTASSIUM 4.1 mmol/L (3.5-5.1)
[2018-07-03] MEDS: PANTOPRAZOLE SOD 40 MG TABEC PO SCH (07:30)
[2018-07-03] MEDS: SEVELAMER CARBONATE 800 MG TAB PO SCH ×3 (08:00→17:00)
[2018-07-03] MEDS ORDERED: PANTOPRAZOLE 40 MG 10ML VIAL IV SCH (09:00)
[2018-07-03] MEDS: CEFEPIME HCL 1 GM VIAL IV SCH (09:00)
[2018-07-03] MEDS ORDERED: IPRATROPIUM BROMIDE 0.02% 2.5 ML NEB NEB PRN (09:00)
--- NOTE | 2018-07-03 09:02 | Diagnostic Imaging Report ---
Exam: Head CT without contrast History: Fever of unknown origin Comparison studies: Head CT 04/27/2017 Technique: Axial images were obtained from the skull base to the vertex. Coronal and sagittal images reconstructed from the axial data. Dose modulation, iterative reconstruction, and/or weight based adjustment of the mA/kV was utilized to reduce the radiation dose to as low as reasonably achievable. Radiation dose: Total DLP: 1151 mGy*cm. Estimated effective dose: DLP x 0.015 Intravenous contrast: None Findings: Limitations: Evaluation of the posterior fossa and inferior occipital and temporal lobes are somewhat limited by artifacts related to patient motion and streaking the skull base. Scalp: No abnormalities. Bones: No fractures, blastic or lytic lesions. Brain sulci: Mildly prominent. Ventricles: Mild compensatory dilatation. No hydrocephalus. Extra-axial spaces: No masses, no fluid collection. Parenchyma: No mass, acute hemorrhage or acute or chronic cortical vascular insults. A few subtle hypodensities in the supratentorial white matter are nonspecific but most compatible with chronic microvascular ischemic changes. Sellar/suprasellar region: No abnormalities. Craniocervical junction: Patent foramen magnum. No Chiari one malformation. Paranasal sinuses: Clear. Incidental findings: Bilateral lens replacements related for previous cataract surgery. Atherosclerotic calcifications in the carotid siphons and intradural vertebral arteries. IMPRESSION: No acute intracranial abnormalities. Chronic findings: 1. Mild generalized volume loss. 2. Mild chronic microvascular ischemic changes. Signed by: Dr. Ryne Brand M.D. on 07/03/2018 8:59 AM
[2018-07-03] MEDS ORDERED: SODIUM CHLORIDE 0.9% 1000ML 1,000 ML ONE (09:27)
[2018-07-03] MEDS ORDERED: SODIUM CHLORIDE 0.9% 1000ML 2,000 ML IV PRN (09:30)
[2018-07-03] MEDS ORDERED: ALBUMIN 25% 12.5GM 0.25 GM/ML BTL IV PRN (09:30)
[2018-07-03] MEDS: LEVALBUTEROL HCL SOLN NEBU 0.63 MG/3 ML NEB INH SCH ×4 (09:59→22:50)
[2018-07-03] MEDS ORDERED: METOPROLOL TARTRATE INJ 1 MG/ML VIAL IV PRN (11:00)
--- NOTE | 2018-07-03 11:18 | Diagnostic Imaging Report ---
PROCEDURE: CT ABDOMEN AND PELVIS WITH CONTRAST TECHNIQUE: The abdomen and pelvis were scanned utilizing a multidetector helical scanner from the diaphragm to the lesser trochanter after the IV administration of 50 cc of Isovue 370 and the oral administration of water. Coronal and sagittal multiplanar reformations were obtained. COMPARISON: Patients [facility], CT, CT ABDOMEN AND PELVIS WITHOUT CONTRAST, 03/03/2010, 9:03. INDICATIONS: sepsis FINDINGS: LOWER THORAX: Bilateral small pleural effusions, right greater than left, and associated bilateral lower lobe compressive atelectasis. Moderate cardiomegaly. Atherosclerotic calcification of the mitral annulus and coronary arteries. Atelectatic changes in the right middle lobe and lingula.. HEPATOBILIARY: No focal hepatic lesions. No biliary ductal dilatation. Layering hyperdensity in the gallbladder fundus (series 2 image 36), which may reflect sludge or small stones. No wall thickening. SPLEEN: No splenomegaly. PANCREAS: No focal masses or ductal dilatation. Moderate atrophy. ADRENALS: Thickening of the left adrenal gland, without focal lesions. Right gland is unremarkable. KIDNEYS/URETERS: Right renal atrophy. 0.9 cm fluid density simple cyst in the right kidney (series 2, image 33). Left kidney is atrophic, and shows cortical thinning, measuring 7.1 cm in length. 1.1 cm, left interpolar region and 1.3 cm exophytic left inferior pole hyperdense lesions which measure greater than 70 HU, consistent with hemorrhagic cysts. No other focal lesions. No hydronephrosis or stones. PELVIC ORGANS/BLADDER: Decompressed, but grossly unremarkable. The uterus is unremarkable. PERITONEUM / RETROPERITONEUM: Generalized increased attenuation of the peritoneum and mesentery, likely reflecting edema. No free fluid. LYMPH NODES: No adenopathy. VESSELS: Extensive atherosclerotic calcification of the abdominal aorta and iliac vessels. GI TRACT: Mild dilation of the rectosigmoid, which measures 8.3 cm in transverse diameter, and is filled with stool. There is mild surrounding stranding (series 2, images 64-81). Rest of the bowel shows no dilation or obstruction. Sigmoid diverticulosis, without diverticulitis. BONES AND SOFT TISSUES: Generalized osteopenia. No acute bony abnormalities. Marked generalized soft tissue edema. IMPRESSION: 1. findings in the rectosigmoid may represent stercoral colitis secondary to fecal impaction. 2. No well-defined enhancing fluid collections to suggest intra-abdominal or pelvic abscess. 3. Marked generalized soft tissue edema as well as increased attenuation of the peritoneum and mesentery, also representing edema. 4. Bilateral renal atrophy. Left renal hemorrhagic cysts. 5. Bilateral small pleural effusions and associated bilateral lower lobe compressive atelectasis 6. Layering hyperdensity in the gallbladder fundus may represent sludge and/or small stones. This may be further assessed with right upper quadrant ultrasound, if clinically indicated. Fermin Jackson M.D. Dictated by: Fermin Jackson M.D. on 07/03/2018 at 10:25 Electronically approved by: Fermin Jackson M.D. on 07/03/2018 at 11:27
[2018-07-03] MEDS ORDERED: VANCOMYCIN 1GM/NS 250 ML 250 ML IV SCH (12:00)
[2018-07-03] MEDS ORDERED: EYE LUBRICANT OPTH OINT 3.5GM TUBE OP SCH (17:00)
[2018-07-03] MEDS ORDERED: LORAZEPAM INJ 2 MG/ML VIAL IV PRN (17:00)
[2018-07-03] MEDS ORDERED: MORPHINE SULFATE 2 MG/ML SYR IV PRN (17:00)
[2018-07-03] MEDS ORDERED: SODIUM CHLORIDE 0.9% 50ML 50 ML ONE (17:08)
[2018-07-03] MEDS ORDERED: IOPAMIDOL 370 MG/ML 200 ML INFUS..BTL INJ ONE (17:08)
--- NOTE | 2018-07-29 16:09 | Discharge Summary ---
AND DISCHARGE SUMMARY PRIMARY CARE PROVIDER: Dr. Fermin Palma. DATE OF : July 04, 2018 ADMITTING DIAGNOSES: Fever, chills, and new atrial flutter. FINAL CAUSE OF : Septic shock, mitral valve endocarditis, history of hypertension, chronic atrial fibrillation and end-state renal disease, on hemodialysis. BRIEF HISTORY: Ms. Cortez is an 87-year-old lady who had been admitted to the hospital a month prior and found to have mitral valve vegetation and endocarditis with staph. She was treated with antibiotics and had just finished her antibiotics a few days prior and started developing fever and chills again and presented with positive blood cultures, again be in septic sock with elevated troponins, alerted mental status, chronic AFib with rapid ventricular response. HOSPITAL COURSE: The patient was admitted to the ICU where again she grew positive blood cultures. She appeared septic, was on pressors and antibiotics. The family elected to withdraw care and the patient with the final cause of being septicemia from staph due to mitral valve endocarditis. VENU HOFFMAN MD Job#: [id number] DORI
== END 2018-07-04 01:19 | disposition expired | DRG 871 ==
LOC: ER 13:31 → ERHOLD 19:21 → ICU 20:40 → MED/SURG 07-03 21:30
PROVIDERS: ADMIT Internal Medicine; ATTEND Internal Medicine
PROC: 5A1D70Z Performance of Urinary Filtration, Intermittent, Less than 6 Hours Per Day (ICD-10-PCS; principal; 2018-07-03)
DX: A41.01 Sepsis due to Methicillin susceptible Staphylococcus aureus (principal); N18.6 End stage renal disease; I33.0 Acute and subacute infective endocarditis; G92 Toxic encephalopathy; E43 Unspecified severe protein-calorie malnutrition; J90 Pleural effusion, not elsewhere classified; I13.2 Hypertensive heart and chronic kidney disease with heart failure and with stage 5 chronic kidney disease, or end stage renal disease; R65.20 Severe sepsis without septic shock; Z99.2 Dependence on renal dialysis; I48.2 Chronic atrial fibrillation; K21.9 Gastro-esophageal reflux disease without esophagitis; Z88.0 Allergy status to penicillin; E03.9 Hypothyroidism, unspecified; I50.9 Heart failure, unspecified; E83.52 Hypercalcemia; D64.9 Anemia, unspecified; R53.81 Other malaise; R41.82 Altered mental status, unspecified; Z51.5 Encounter for palliative care
CPT/HCPCS: 36415; 51700; 70450; 71045; 71046; 74177; 80048; 80053; 81001; 82550; 82553; 83605; 83970; 84484; 85025; 87040; 87071; 87086; 87186; 87205; 87400; 93005; 93306; 94640; 96367; 99284; J0692; J2060; J3370; J7030; J7040; Q9967